=== PATIENT | male | born 1975 | race Caucasian/White ===

== ENCOUNTER 2022-01-01 17:51 | Outpatient (REF) | payer BC, SELFPAY ==
[2022-01-01 16:27] LABS: Anion Gap 8.6 mmol/L (3-11); BUN 19 mg/dL (7-18); CO2 28.4 mmol/L (21.0-32.0); CREATININE 0.9 mg/dL (0.70-1.30); Calcium 9.5 mg/dL (8.5-10.1); Calculated LDL 234 mg/dL (<100); Chloride 99 mmol/L (98-107); Cholesterol 306 mg/dL (<200); Glucose 105 mg/dL (74-106); HDL Cholesterol 54 mg/dL (40-60); Potassium 4.6 mmol/L (3.5-5.1); Sodium 136 mmol/L (136-145); Triglyceride 92 mg/dL (<150); Vitamin B12 746 pg/mL (193-986)
[2022-01-01 22:14] LABS: PSA, Screening 0.5 ng/mL (0.0-2.5)
== END 2022-01-01 17:52 | disposition home or self-care (01) ==
LOC: NCHCN 17:51
PROVIDERS: PCP Nurse Practitioner Family; Visit Provider Nurse Practitioner Family
DX: Z00.00 Encounter for general adult medical examination without abnormal findings (principal); R06.83 Snoring; K21.9 Gastro-esophageal reflux disease without esophagitis; E66.9 Obesity, unspecified; K42.9 Umbilical hernia without obstruction or gangrene; G47.62 Sleep related leg cramps; Z12.5 Encounter for screening for malignant neoplasm of prostate
CPT/HCPCS: 80048; 80061; 84153; 82607; 83735

== ENCOUNTER 2023-01-15 14:50 | Outpatient (REF) | payer BC, SELFPAY ==
[2023-01-15 16:12] LABS: BUN 20 mg/dL (7-18); Calcium 9.5 mg/dL (8.5-10.1); Calculated LDL 200 mg/dL (<100); Chloride 103 mmol/L (98-107); Cholesterol 267 mg/dL (<200); Glucose 109 mg/dL (74-106); HDL Cholesterol 50 mg/dL (40-60); Magnesium 2.2 mg/dL (1.8-2.4); Potassium 4.4 mmol/L (3.5-5.1); Sodium 141 mmol/L (136-145); Triglyceride 88 mg/dL (<150); Vitamin B12 577 pg/mL (193-986)
[2023-01-15 23:31] LABS: PSA, Screening 0.7 ng/mL (<=2.5)
[2023-01-18 11:45] LABS: Hepatitis C Ab w Rflx HCV PCR Negative (Negative)
[2023-01-18 12:02] LABS: HIV-1/2 Ag & Ab Screen Negative (Negative)
== END 2023-01-15 14:51 | disposition home or self-care (01) ==
LOC: NCHCN 14:50
PROVIDERS: PCP Nurse Practitioner Family; Visit Provider Nurse Practitioner Family
DX: Z00.00 Encounter for general adult medical examination without abnormal findings (principal); R03.0 Elevated blood-pressure reading, without diagnosis of hypertension; K62.5 Hemorrhage of anus and rectum; K21.9 Gastro-esophageal reflux disease without esophagitis; E78.5 Hyperlipidemia, unspecified; E66.3 Overweight; Z80.42 Family history of malignant neoplasm of prostate; Z12.5 Encounter for screening for malignant neoplasm of prostate; Z11.4 Encounter for screening for human immunodeficiency virus [HIV]; Z11.59 Encounter for screening for other viral diseases
CPT/HCPCS: 80048; 80061; 84153; 86803; 87389; 82607; 83735

== ENCOUNTER 2023-07-20 11:07 | Outpatient (REF) | payer BC, SELFPAY ==
[2023-07-20 16:17] LABS: ALT 86 U/L (16-63); AST 45 U/L (15-37); Albumin 4.4 g/dL (3.4-5.0); Alkaline Phosphatase 64 U/L (46-116); BUN 21 mg/dL (7-18); Bilirubin, Total 0.8 mg/dL (0.2-1.0); Calcium 9.9 mg/dL (8.5-10.1); Calculated LDL 138 mg/dL (<100); Chloride 105 mmol/L (98-107); Cholesterol 208 mg/dL (<200); Glucose 110 mg/dL (74-106); HDL Cholesterol 55 mg/dL (40-60); Potassium 4.8 mmol/L (3.5-5.1); Sodium 139 mmol/L (136-145); Total Protein 7.5 g/dL (6.4-8.2); Triglyceride 79 mg/dL (<150)
== END 2023-07-20 11:08 | disposition home or self-care (01) ==
LOC: NCHCN 11:07
PROVIDERS: PCP Nurse Practitioner Family; Visit Provider Nurse Practitioner Family
DX: Z00.00 Encounter for general adult medical examination without abnormal findings (principal); R03.0 Elevated blood-pressure reading, without diagnosis of hypertension; E66.3 Overweight
CPT/HCPCS: 80053; 80061

== ENCOUNTER 2023-10-11 16:41 | Outpatient (REF) | payer BC, SELFPAY ==
[2023-10-11 15:42] LABS: ALT 81 U/L (16-63); AST 43 U/L (15-37); Albumin 4.2 g/dL (3.4-5.0); Alkaline Phosphatase 68 U/L (46-116); Anion Gap 8.2 mmol/L (3-11); BUN 17 mg/dL (7-18); Bilirubin, Total 0.8 mg/dL (0.2-1.0); CO2 26.8 mmol/L (21.0-32.0); CREATININE 0.9 mg/dL (0.70-1.30); Calcium 9.5 mg/dL (8.5-10.1); Chloride 104 mmol/L (98-107); Estimated GFR 106.01 (mL/min/1.73m2); Glucose 129 mg/dL (74-106); Potassium 4.3 mmol/L (3.5-5.1); Sodium 139 mmol/L (136-145); Total Protein 7.4 g/dL (6.4-8.2); Vitamin B12 642 pg/mL (193-986)
--- OUTSIDE RECORDS SUMMARY | 2023-10-11 16:43 | XMS_ITS | Continuity of Care Document ---
Author Name Unknown Organization [facility] Address [address] [place] [phone] Care Team Providers Care Retail Stocker Name Role Phone NEAL HAWKINS APRN Primary Care Physician Encounter [facility] NBR [id number] Date(s): 09/30/23 - 09/30/[address] [id number] Discharge Disposition: Home or Self Care Attending Physician: NEAL HAWKINS APRN Admitting Physician: NEAL HAWKINS APRN Referring Physician: NEAL HAWKINS APRN Allergies, Adverse Reactions, Alerts No Known Medication Allergies Assessment and Plan Future Appointments Medications pantoprazole 40 mg oral delayed release tablet 40 mg = 1 tab, Oral, Daily, 1 Unknown, # 30 tab, 11 Refill(s), Pharmacy: [id number] Start Date: 07/09/22 Stop Date: 07/04/23 Status: Ordered Problem List Condition Confirmation Course Effective Dates Status Health St [facility] Informant Back pain Confirmed Active Leg cramps Confirmed Active Dry skin Confirmed Active GERD with esophagitis Confirmed Active GERD (gastroesophageal reflux disease) Confirmed Active Hyperlipemia Confirmed Active Colon cancer Confirmed Active Prostate cancer Confirmed Active Over weight Confirmed Active Preventative health care Confirmed Active Phimosis Confirmed Active Rectal bleeding Confirmed Active Umbilical hernia Confirmed Active Procedures Procedure Date Related Diagnosis Body Site Status Colonoscopy 03/26/22 Completed Upper GI (gastrointestinal) endoscopy 03/26/22 Completed Vasectomy Completed Results Radiology Reports * Exam Date Time Procedure Performing Provider Status 09/30/23 4:10 PM MRI Spine Lumbar w/o Contrast DomainU ser, Generated; Auth (Verified) Notes: (MRI Spine Lumbar w/o Contrast) Reason For Exam: LOW BACK PAIN MRI Spine Lumbar w/o Contrast EXAM DESCRIPTION: MRI Spine Lumbar w/o Contrast 09/30/2023 INDICATION: LOW BACK PAIN TECHNIQUE: Multiplanar MRI examination of the lumbar spine utilizing T1, fat-suppressed T2 and fast STIR technique. COMPARISON: None FINDINGS: Mild retrolisthesis at L4-5. Lumbar lordosis is otherwise satisfactory with no scoliosis. Loss of intervertebral disc stature and signal intensity at L5-S1 on sagittal T2 weighted images consistent with desiccation and degeneration L5-S1: Mild broad-based left paracentral disc extrusion superimposed on a mild diffuse disc bulge with mild bilateral facet hypertrophy. Mild-moderate left lateral recess stenosis with encroachment on the left S1 nerve root. No significant central stenosis with AP spinal canal diameter of 12 mm. Mild bilateral neural foraminal narrowing L4-5: Broad-based right paracentral disc extrusion superimposed on a mild diffuse disc bulge with mild bilateral facet hypertrophy. Right lateral recess stenosis with encroachment on the right L5 nerve root. No significant central stenosis with AP spinal canal diameter of 10 mm. No significant neural foraminal narrowing L3-4: No focal disc protrusion, significant spinal stenosis or neural foraminal narrowing. L2-3: No focal disc protrusion, significant spinal stenosis or neural foraminal narrowing. L1-2: No focal disc protrusion, significant spinal stenosis or neural foraminal narrowing. No significant stenosis in the visualized lower thoracic spine. The conus is normal in morphology and signal intensity and terminates at the L1 level. No suspicious regional marrow lesions with degenerative endplate changes at L5-S1. Small vertebral body hemangioma at the L1 level. No vertebral body compression deformity in the lumbar region Paraspinal soft tissues are unremarkable. IMPRESSION: Spondylotic changes in the lower lumbar region. Right lateral recess stenosis at L4-5 with left lateral recess stenosis at L5-S1. No significant central stenosis. Mild bilateral neural foraminal narrowing at L5-S1. Please see above discussion for individual level description. Normal conus. JOB #: [id number] Final Signed by: Nate Whitt MD Signed (Electronic Signature): 09/30/2023 4:39 pm Social History Social History Type Response Tobacco Never tobacco user T obacco Use:. Sex Patient Care team information Care Team Personnel Name: NEAL HAWKINS APRN Position: No Access Member Role: Primary Care Physician Address: Address: [address] [place] [phone]- Care Team Related Persons Name: ZA DALTON Address: Home [address], [place] [id number]
[2023-10-12 10:28] LABS: PSA, Screening 0.5 ng/mL (<=2.5)
== END 2023-10-11 16:42 | disposition home or self-care (01) ==
LOC: NCHCN 16:41
PROVIDERS: PCP Nurse Practitioner Family; Visit Provider Nurse Practitioner Family
DX: Z80.42 Family history of malignant neoplasm of prostate (principal); K21.9 Gastro-esophageal reflux disease without esophagitis
CPT/HCPCS: 80053; 84153; 82607; 83735

== ENCOUNTER 2024-04-19 20:46 | Outpatient (REF) | payer BC, SELFPAY ==
--- OUTSIDE RECORDS SUMMARY | 2024-04-19 20:47 | XMS_ITS | Continuity of Care Document ---
Author Organization [facility] Ambulatory [facility] Address [address] [place] [address] Care Team Providers Care Vice President Consulting Services Name Role Phone NEAL HAWKINS APRN Primary Care Physician Encounter [facility] NBR [id number] Date(s): 01/25/24 - 01/25/24 [facility] [address] [place] [address] [place] Encounter Diagnosis Lumbar disc herniation(Discharge Diagnosis) - 02/11/24 Stenosis of lateral recess of lumbar spine(Discharge Diagnosis) - 02/11/24 Lumbar radiculopathy(Discharge Diagnosis) - 02/11/24 Discharge Disposition: Home or Self Care Attending Physician: Jodie Gallagher DO Referring Physician: Janelle Cortes APRN-BRITNEY Allergies, Adverse Reactions, Alerts No Known Medication Allergies Assessment and Plan Extracted from: Title:[facility] Office Visit Note - Pain Management Author:Jodie Gallagher DO Date:01/25/24 Lumbar disc herniation??M51. 26 Ordered: Surgical Procedure Booking Request LT, 01/25/24 9:46:00 EDT, lumbar radiculopathy, Lumbar disc herniation Lumbar radiculopathy Stenosis of lateral recess of lumbar spine, Outpatient, L4-5 TLESI, Primary Procedure, 31, Special equipment needed (include C-Arm requests)?, Local, 31, Chanell... ?? Lumbar radiculopathy??M54.16 Ordered: Surgical Procedure Booking Request [facility], 01/25/24 9:46:00 EDT, lumbar radiculopathy, Lumbar disc herniation Lumbar radiculopathy Stenosis of lateral recess of lumbar spine, Outpatient, L4-5 TLESI, Primary Procedure, 31, Special equipment needed (include C-Arm requests)?, Local, 31, Chanell... ?? Stenosis of lateral recess of lumbar spine??M48.061 Ordered: Surgical Procedure Booking Request LTTL, 01/25/24 9:46:00 EDT, lumbar radiculopathy, Lumbar disc herniation Lumbar radiculopathy Stenosis of lateral recess of lumbar spine, Outpatient, L4-5 TLESI, Primary Procedure, 31, Special equipment needed (include C-Arm requests)?, Local, 31, Chanell... ? Terrie is here for evaluation of back pain with radiation to the right lower extremity.?? MRI of the lumbar spine??from 09/30/2023 was independently interpreted. ??There are degenerative disc changes noted at L4-5 and??L5-S1. ??There are endplate??changes at L5-S1.?? There is also a mild disc bulge/protrusion slightly more prominent to the left at L5-S1 with mild to moderate left lateral recess stenosis.?? He denies left sided symptoms.?? At L4-5, there is a right paracentral disc protrusion resulting in??moderate to severe right lateral recess stenosis and likely impingement of the L5 nerve root.?? The findings at L4-5 are likely contributing to the??radicular leg symptoms. He has been [facility] for [facility] and surgery was discussed. ??We reviewed the option to trial a lumbar epidural steroid injection.?? Risks and??potential benefits were reviewed. He would like to trial an injection before considering surgical options.?? Order placed. ?? He will follow up for lumbar CLAY. ? Future Appointments Medications amLODIPine 10 mg oral tablet 0 Refill(s) Start Date: 10/27/23 Status: Ordered atorvastatin 10 mg oral tablet 0 Refill(s) Start Date: 10/27/23 Status: Ordered omeprazole 40 mg oral delayed release capsule 0 Refill(s) Start Date: 10/27/23 Status: Ordered triamcinolone 0.1% topical cream 0 Refill(s) Start Date: 10/27/23 Status: Ordered Problem List Condition Confirmation Course Effective Dates Status H ealth Status Informant Back pain Confirmed Active Leg cramps Confirmed Active Degeneration of lumbar intervertebral disc Confirmed Active Dry skin Confirmed Active GERD with esophagitis Confirmed Active GERD (gastroesophageal reflux disease) Confirmed Active Hyperlipemia Confirmed Active Lumbar spondylosis Confirmed Active Colon cancer Confirmed Active Prostate cancer Confirmed Active Over weight Confirmed Active Preventative health care Confirmed Active Phimosis Confirmed Active Lumbar disc herniation Confirmed Active Rectal bleeding Confirmed Active Umbilical hernia Confirmed Active Procedures Procedure Date Related Diagnosis Body Site Status Colonoscopy 03/26/22 Completed Upper GI (gastrointestinal) endoscopy 03/26/22 Completed Vasectomy Completed Vital Signs Most recent to oldest [Reference Range]: 1 Temperature Temporal Artery [36-38 Deg C ] 36.6 Deg C (01/25/24 9:00 AM) Peripheral Pulse Rate [60-100 bpm] 81 bp m (01/25/24 9:00 AM) Respiratory Rate [12-24 br/min] 16 br/mi n (01/25/24 9:00 AM) Blood Pressure [90-140/60-90 mmHg] 142/9 2mmHg *HI* (01/25/24 9:00 AM) Mean Arterial Pressure, Cuff [65-140 mmH g] 109 mmHg (01/25/24 9:00 AM) Weight 100.8 kg (01/25/24 9:00 AM) Weight Measured (lbs) 222.226 lb (01/25/24 9:00 AM) Weight Dosing 100.800 kg (01/25/24 9:00 AM) [place] Body Weight Calculated 74.992 kg (01/25/24 9:00 AM) Height 180 cm (01/25/24 9:00 AM) Height/Length Measured (inches) 70.87 in ch (01/25/24 9:00 AM) BSA Measured 2.24 m2 (01/25/24 9:00 AM) Body Mass Index 31.11 kg/m2 (01/25/24 9:00 AM) Social History Social History Type Response Tobacco Never tobacco user T obacco Use:. Sex Physician Outpatient Note * Jodie Gallagher, DO: PERFORM, MODIFY Event Display: Office Clinic Note Physician Authored Date: [id number] TERRIE GRAF :1975 Age:48 years Sex:Male Visit Date:01/25/2024 Primary Care Physician: NEAL HAWKINS APRN Chief Complaint low back pain Additional Information Patient reports occasional numbness/tingling in right foot. Patient reports going to chiropractor since May 2023 and it has been helping, he states his chiropractor gave him stretches to try but they have not been helping much. History of Present Illness ?? Terrie is here for evaluation of back pain with intermittent radiation to the right leg.?? He has experienced intermittent flareups of pain over the years.?? He experienced a flareup in May. 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 He has been doing a??home exercise/stretching program from the chiropractor. ??He also started working with a personal protection specialist twice weekly.?? During his most recent flareup, he was started on gabapentin which was helpful for his pain, however, he noticed??brain fog??and recently discontinued the medication. ??Since disco ntinuing gabapentin, he has noticed increased back and leg??pain. ??The back pain is described as adull constant ache. ??He experiences intermittent shooting pain to the??right leg. ??The back pain radiates to the right buttock and can occasionally travel to the right groin and anterior thigh??butthe most significant pain is along the posterolateral calf with intermittent numbness and tingling??in the right foot.?? Pain level is 2/10 currently and can increase up to 8???9/10??depending on hisactivities.?? He can experience difficulty getting out of a car, and transitioning from sitting to standing.?? He also has difficulty with prolonged walking. He also tried 2 visits of massage therapy without relief. Review of Systems Constitutional:?No fevers/chills Respiratory:?No shortness of breath Cardiovascular:?No Chest pain Gastrointestinal:?No bowel dysfunction Genitourinary:?No bladder dysfunction Musculoskeletal:??Positive for back pain Neurological: No focal??weakness, +numbness/tingling right foot Physical Exam Vitals & Measurements T:??36.6?C ??(Temporal Artery)?? HR:??81??(Peripheral)?? RR:??16?? BP:??142/92?? SpO2:??95%?? HT:??180??cm?? WT:??100.8??kg?? BMI:??31.11?? BSA:??2.24?? General: NAD HEENT: Facial movements symmetric Resp: Breathing comfortably, unlabored respirations Lumbar ROM: Fairly normal range of motion of the lumbar spine in flexion, mildly limited extension. mild tenderness to palpation??right lumbar??paraspinal muscles Neuro: Motor:Strength is 5 out of 5 lower extremities bilaterally HF, KE, AD, EHL, PF Sensation:Intact to light touch in the lower extremities bilaterally Reflexes: 2+ bilateral patellar, achilles.?? Provocative tests: Straight leg raise does not reproduce leg pain Hips: No groin pain with internal or external rotation SI joints: Bertha's finger test negative Gait: normal, able to toe and heel walk Assessment/Plan Lumbar disc herniation??M51.26 Ordered: Surgical Procedure Booking Request LTTL, 01/25/24 9:46:00 EDT, lumbar radiculopathy, Lumbar disc herniation Lumbar radiculopathy Stenosis of lateral recess of lumbar spine, Outpatient, L4-5 TLESI, Primary Procedure, 31, Special equipment needed (include C-Arm requests)?, Local, 31, Chanell... ?? Lumbar radiculopathy??M54.16 Ordered: Surgical Procedure Booking Request LTTL, 01/25/24 9:46:00 EDT, lumbar radiculopathy, Lumbar disc herniation Lumbar radiculopathy Stenosis of lateral recess of lumbar spine, Outpatient, L4-5 TLESI, Primary Procedure, 31, Special equipment needed (include C-Arm requests)?, Local, 31, Chanell... ?? Stenosis of lateral recess of lumbar spine??M48.061 Ordered: Surgical Procedure Booking Request LTTL, 01/25/24 9:46:00 EDT, lumbar radiculopathy, Lumbar disc herniation Lumbar radiculopathy Stenosis of lateral recess of lumbar spine, Outpatient, L4-5 TLESI, Primary Procedure, 31, Special equipment needed (include C-Arm requests)?, Local, 31, Chanell... ? Terrie is here for evaluation of back pain with radiation to the right lower extremity.?? MRI of the lumbar spine??from 09/30/2023 was independently interpreted. ??There are degenerative disc changes noted at L4-5 and??L5-S1. ??There are endplate??changes at L5-S1.?? There is also a mild disc bulge /protrusion slightly more prominent to the left at L5-S1 with mild to moderate left lateral recess stenosis.?? He denies left sided symptoms.?? At L4-5, there is a right paracentral disc protrusion resulting in??moderate to severe right lateral recess stenosis and likely impingement of the L5 nerveroot.?? The findings at L4-5 are likely contributing to the??radicular leg symptoms. He has been seen for initial evaluation in the [facility] and surgery was discussed. ??We reviewed the option totrial a lumbar epidural steroid injection.?? Risks and??potential benefits were reviewed. He would like to trial an injection before considering surgical options.?? Order placed. ?? He will follow up for lumbar CLAY. ?? Images MRI lumbar spine from 09/30/23 independently interpreted and agree with radiology report ? Greater than 45??minutes??spent in this encounter including [id number] time as well as additional time spent on chart review,??imaging review, documentation, orders/coordination of care. Problem List/Past Medical History Ongoing Back pain Colon cancer Degeneration of lumbar intervertebral disc Dry skin GERD (gastroesophageal reflux disease) GERD with esophagitis Hyperlipemia Leg cramps Lumbar disc herniation Lumbar spondylosis Over weight Phimosis Preventative health care Prostate cancer Rectal bleeding Umbilical hernia Historical No qualifying data Procedure/Surgical History ???Colonoscopy (03/27/2022)???Upper GI (gastrointestinal) endoscopy (03/27/2022)???Vasectomy Medications amLODIPine 10 mg oral tablet atorvastatin 10 mg oral tablet omeprazole 40 mg oral delayed release capsule triamcinolone 0.1% topical cream Allergies No Known Medication Allergies Social History Alcohol Current, Liquor, Daily Electronic Cigarette/Vaping Electronic Cigarette Use: Never. Tobacco Never tobacco user Tobacco Use:. Family History Cancer: Father. Stroke: Father. Mother: History is unknown Brother: History is unknown Sister: History is unknown Electronically Signed on 01/25/24 10:04 AM Jodie Gallagher DO Patient Care team information Care Team Personnel Name: NEAL HAWKINS APRN Position: No Access Member Role: Primary Care Physician Address: Address: [address] [place] [id number]- Care Team Related Persons Name: ZA DALTON Address: [address] [id number]
--- OUTSIDE RECORDS SUMMARY | 2024-04-19 20:47 | XMS_ITS | Continuity of Care Document ---
Author Organization [facility] Ambulatory Clinics Address [address] [place] [address] Care Team Providers Care Tool Room Machinist Name Role Phone NEAL HAWKINS APRN Primary Care Physician Encounter [facility] NBR [id number] Date(s): 10/28/23 - 10/28/23 [facility] Ambulatory Clinics [address] [place], [place] [address] Encounter Diagnosis Back pain(Discharge Diagnosis) - 10/28/23 Degeneration of lumbar intervertebral disc(Discharge Diagnosis) - 10/28/23 Lumbar spondylosis(Discharge Diagnosis) - 10/28/23 Lumbar disc herniation(Discharge Diagnosis) - 10/28/23 Discharge Disposition: Home or Self Care Attending Physician: IRWIN Dickens Referring Physician: NEAL HAWKINS APRN Allergies, Adverse Reactions, Alerts No Known Medication Allergies Assessment and Plan Extracted from: Title:Office Visit Note Author:ZHANG Dickens Date:10/28/23 1.??Back pain??M54.9 Ordered: XR Spine Lumbosacral 4+ Views, 10/28/23 14:26:00 EST, Routine, Reason: low back pain, AP/Lat and FLEX/EXT, Transport Mode: Ambulatory, Back pain, ABN Status: Not Required ?? 2.??Degeneration of lumbar intervertebral disc??M51.36 ?? 3.??Lumbar spondylosis??M47.816 ?? 4.??Lumbar disc herniation??M51.26 ?? The patient has been struggling with years of intermittent flares??of back pain and sciatica affecting the right lower extremity.?? This tends to happen 2 or 3 times a year and will resolve.?? In May he blew out his back and this resulted in significant low back pain as well as right leg pain.?? Fortunately, his symptoms have just about resolved??with??medications and chiropractic treatments. ??He does find the gabapentin??seems to be most helpful??with relieving this pain.?? He is concerned because he does not want to take this chronically but he is afraid if he stops taking the medication the pain will return. ??He is also concerned that maybe the gabapentin is just numbing his pain.?It was??explained the patient that he is in a difficult situation as he is not in any current pain??even though he recently was in quite severe pain.?? He suspects that the pain will return at some point as it has previously.?? Is very likely that the disc herniation at L4-5 on the right was the cause of his right leg symptoms. ??We discussed that surgical correction for that problem will be in the form of microlumbar discectomy however again it would be difficult to recommend surgical correction for that problem given that he is not experiencing any symptoms.?? If he were to develop increased pain in the right leg we could consider surgery as well as a possible lumbar epidural steroid injection.?? For his??low back pain, it was explained that low back pain can be more difficult to diagnose and localize. ??He does have??degeneration??and endplate changes that are quite pronounced at the L5-S1 level so it is possible that this is contribute to his low back pain.?? This may the patient that if he were to have surgery for the herniated disc at L4-5, that would likely not resolve his low back pain.?? The only surgery to correct low back pain and the degenerative changes at L5-S1 to be in the form of a posterior lumbar interbody fusion which is a much larger surgery.?? The patient had multiple questions about why his spine at times will rotate or leaning 1 way more than the other.?? He did show me some AP??images of the lumbar spine x- ray that he had completed with his chiropractor and there does appear to be a very mild??scoliosis??in the??upper lumbar and lower thoracic spine but this very well could be positional.?He was reassured that there is no evidence of a spinal deformity that would require surgical correction and it is very possible that due to his pain the myofascial??tissues are contributing to this??problem.?? We discussed that it would be reasonable for the patient to establish with the [facility]??but he states that he ended up canceling an appointment to see them because it was not until January. ??However, if his pain does return??or continue to bother he may benefit from an injection.?? We discussed that we would likely recommend trial of injections especially for the low back pain and problem at L5-S1 prior to proceeding with surgical correction for his problem.?I also recommended that we obtain flexion-extension lumbar spine x-rays to ensure that there is no abnormal movement of the lumbar spine and he is in agreement.?? He is asking if he should come off of his gabapentin and??I recommended that it may be worthwhile trialing coming off of this but he should wean off slowly.?? He is only taking 3 to milligrams at night so I recommended that he??take this medication every other night for the next few days and then he can stop if he would like to.?? We can follow-up with a telemedicine visit in 2 weeks to see??how he is feeling once he stopped the gabapentin. ??If his pain does return, I again would recommend referral to the pain clinic for consideration of injections. Plan: AP and lateral flexion-extension lumbar spine x-rays. Telemedicine??follow-up visit in 2 weeks. ? Future Appointments Medications amLODIPine 10 mg oral tablet 0 Refill(s) Start Date: 10/27/23 Status: Ordered atorvastatin 10 mg oral tablet 0 Refill(s) Start Date: 10/27/23 Status: Ordered gabapentin 300 mg oral capsule 0 Refill(s) Start Date: 10/27/23 Status: [...] Temperature Temporal Artery [36-38 Deg C ] 35.7 Deg C *LOW* (10/28/23 12:55 PM) Peripheral Pulse Rate [60-100 bpm] 91 bp m (10/28/23 12:55 PM) Blood Pressure [90-140/60-90 mmHg] 140/8 0mmHg (10/28/23 12:55 PM) Mean Arterial Pressure, Cuff [70-110 mmH g] 100 mmHg (10/28/23 12:55 PM) Weight 100.6 kg (10/28/23 12:55 PM) Weight Measured (lbs) 221.785 lb (10/28/23 12:55 PM) Weight Dosing 100.600 kg (10/28/23 12:55 PM) Social History Social History Type Response Tobacco Never tobacco user T obacco Use:. Sex Physician Outpatient Note * IRWIN Dickens: PERFORM Event Display: Office Clinic Note Physician Authored Date: [id number] TERRIE GRAF :1975 Age:48 years Sex:Male Visit Date:10/28/2023 Primary Care Physician: NEAL HAWKINS APRN Chief Complaint Lower back Additional Information Numbness or tingling no the gabapentin is helping. MRI at [facility]. Pain is worse when bending, lifting. History of Present Illness The patient presents for evaluation of his low back pain.?? He states that for??many years he will blow his back out 2-3 times??will have significant low back pain that eventually results and sciatica affecting the right lower extremity. ??He states that his most recent episode was in May when he blew his back out.?? He states that he had pain??in the middle down low in the low back??that??eventually radiated down the right lateral??leg??to the calf.?? The pain in his leg was most significant at the calf.?? He states in the past he had sciatica in the right leg that was more posterior and extended into the ball of his foot. ??He did not have any pain in his foot with this most recent episode though he did have some intermittent numbness and tingling.?? He denies any current weakness ofhis lower extremities but does recall that during 1??visit with his provider he was not able to walk on his toes when he was having the more significant pain.?? The patient saw??a chiropractor and??was also prescribed 2 rounds of oral steroids and then gabapentin??for his pain.?? He states that after he started the gabapentin his sciatica as well as his back pain just about resolved.?? However, this did cause brain fog so he had to decrease from taking this twice a day to once a day but it still seems to be helping manage the pain.?? He does have a tightness and stiffness in his low back but again no leg pain at this point.?? He finds that when he wakes up in the morning he will have increased pain and??often feels that his??spine is??curved or leaning 1 way or the other but this will resolve??but again happen intermittently in the morning.?? He also takes Advil and Tylenol as needed.??The patient??states that he is very limited in his activity because he is afraid that he is going to blow his back out again so he is looking for more permanent solution for his back problem. Review of Systems Relevant ROS discussed in HPI Physical Exam Vitals & Measurements T:??35.7?C ??(Temporal Artery)?? HR:??91??(Peripheral)?? BP:??140/80?? SpO2:??97%?? WT:??100.6??kg?? GENERAL:?General Appearance:?pleasant, age appropriate in no apparent distress.?? MUSCULOSKELETAL:?Musculoskeletal:??No lumbar spine,??lumbar paraspinal muscle,??bilateral SI joint or bilateral greater trochanteric bursa tenderness.?There is no deformity of the spine noted on examination. NEUROLOGICAL:?Neurological:?? Negative straight leg bilaterally??from a seated position. ?Motor:?Strength 5/5 with bilateral hip flexion, knee flexion and extension, ankle dorsiflexion and plantar flexion.?Reflexes:?1+ and symmetric in biceps, triceps, brachioradialis bilaterally.?? 3+ bilateral knee jerks. ??2+ right ankle jerk, 1+ left ankle jerk. ? Tone: normal? Gait:?normal.? Assessment/Plan 1.??Back pain??M54.9 Ordered: XR Spine Lumbosacral 4+ Views, 10/28/23 14:26:00 EST, Routine, Reason: low back pain, AP/Lat and FLEX/EXT, Transport Mode: Ambulatory, Back pain, ABN Status: Not Required ?? 2.??Degeneration of lumbar intervertebral disc??M51.36 ?? 3.??Lumbar spondylosis??M47.816 ?? 4.??Lumbar disc herniation??M51.26 ?? The patient has been struggling with years of intermittent flares??of back pain and sciatica affecting the right lower extremity.?? This tends to happen 2 or 3 times a year and will resolve.?? In May he blew out his back and this resulted in significant low back pain as well as right leg pain.??Fortunately, his symptoms have just about resolved??with??medications and chiropractic treatments. ??He does find the gabapentin??seems to be most helpful??with relieving this pain.?? He is concernedbecause he does not want to take this chronically but he is afraid if he stops taking the medication the pain will return. ??He is also concerned that maybe the gabapentin is just numbing his pain.?It was??explained the patient that he is in a difficult situation as he is not in any current pain??even though he recently was in quite severe pain.?? He suspects that the pain will return at some point as it has previously.?? Is very likely that the disc herniation at L4-5 on the right was the cause of his right leg symptoms. ??We discussed that surgical correction for that problem will be in the form of microlumbar discectomy however again it would be difficult to recommend surgical correction for that problem given that he is not experiencing any symptoms.?? If he were to develop increased pain in the right leg we could consider surgery as well as a possible lumbar epidural steroid inje ction.?? For his??low back pain, it was explained that low back pain can be more difficult to diagnose and localize. ??He does have??degeneration??and endplate changes that are quite pronounced at the L5-S1 level so it is possible that this is contribute to his low back pain.?? This may the patientthat if he were to have surgery for the herniated disc at L4-5, that would likely not resolve his low back pain.?? The only surgery to correct low back pain and the degenerative changes at L5-S1 to be in the form of a posterior lumbar interbody fusion which is a much larger surgery.?? The patient had multiple questions about why his spine at times will rotate or leaning 1 way more than the other.?? He did show me some AP??images of the lumbar spine x-ray that he had completed with his chiropractor and there does appear to be a very mild??scoliosis??in the??upper lumbar and lower thoracic spine but this very well could be positional.?He was reassured that there is no evidence of a spinal deformity that would require surgical correction and it is very possible that due to his pain the юлия fascial??tissues are contributing to this??problem.?? We discussed that it would be reasonable for the patient to establish with the [facility]??but he states that he ended up canceling an appointment to see them because it was not until January. ??However, if his pain does return??or continue to bother he may benefit from an injection.?? We discussed that we would likely recommend trial ofinjections especially for the low back pain and problem at L5-S1 prior to proceeding with surgical correction for his problem.?I also recommended that we obtain flexion-extension lumbar spine x-rays to ensure that there is no abnormal movement of the lumbar spine and he is in agreement.?? He is asking if he should come off of his gabapentin and??I recommended that it may be worthwhile trialingcoming off of this but he should wean off slowly.?? He is only taking 3 to milligrams at night so Irecommended that he??take this medication every other night for the next few days and then he can stop if he would like to.?? We can follow-up with a telemedicine visit in 2 weeks to see??how he is feeling once he stopped the gabapentin. ??If his pain does return, I again would recommend referral to the pain clinic for consideration of injections. Plan: AP and lateral flexion-extension lumbar spine x-rays. Telemedicine??follow-up visit in 2 weeks. Problem List/Past Medical History Ongoing Back pain [...] oral tablet atorvastatin 10 mg oral tablet gabapentin 300 mg oral capsule omeprazole 40 mg oral delayed release capsule triamcinolone 0.1% topical cream Allergies No Known Medication Allergies Social History Alcohol Current, Liquor, Daily Electronic Cigarette/Vaping Electronic Cigarette Use: Never. Tobacco Never tobacco user Tobacco Use:. Family History Cancer: Father. Stroke: Father. Mother: History is unknown Brother: History is unknown Sister: History is unknown Diagnostic Results Diagnostic Study Interpretation: MRI lumbar spine reviewed with the patient. There are degenerative disc changes at the L4-5 and L5-S1 level but most pronounced at L5-S1 where there is intervertebral disc space narrowing that is quite pronounced as well as Modic endplate changes.?? At L5-S1 there is also mild diffuse disc bulge with bilateral facet hypertrophy causing??mild to moderate??left lateral recess stenosis and neuroforaminal narrowing.?? At L4-5 there are mild bilateral facet changes with a right paracentral disc protrusion causing moderate to severe right lateral recess stenosis. Electronically Signed on 10/28/23 02:54 PM Janelle Cortes APRN-CHAR BELT OPERATOR Patient Care team information Care Team Personnel Name: NAEL HAWKINS APRN Position: No Access Member Role: Primary Care Physician Address: Address: [address] [place] [id number]- Care Team Related Persons Name: ZA DALTON Address: [address] [phone]
--- OUTSIDE RECORDS SUMMARY | 2024-04-19 20:47 | XMS_ITS | Continuity of Care Document ---
Author Organization [facility] Address [address] [place] [id number] Care Team Providers Care Supervisor Of Officials Name Role Phone NEAL HAWKINS APRN Primary Care Physician Encounter [facility] NBR [id number] Date(s): 10/28/23 - 10/28/[address] [address]- Encounter Diagnosis Dorsalgia, unspecified(Final) - Discharge Disposition: Home or Self Care Attending Physician: IRWIN Dickens Admitting Physician: IRWIN Dickens Referring Physician: IRWIN Dickens Allergies, Adverse Reactions, Alerts No Known Medication Allergies Assessment and Plan Future Appointments Medications amLODIPine 10 mg oral [...] Condition Confirmation Course Effective Dates Status H ealt Status Informant Back pain Confirmed Active Leg [...] Exam Date Time Procedure Performing Provider Status 10/28/23 2:43 PM XR Spine Lumbosacral 4+ Views Renay Julian; Rachel (Verified) Notes: (XR Spine Lumbosacral 4+ Views) Reason For Exam: low back pain XR Spine Lumbosacral 4+ Views EXAM DESCRIPTION: XR Spine Lumbosacral 4+ Views 10/28/2023 INDICATION: LOW BACK PAIN TECHNIQUE: AP and views of the lumbar spine including lateral views with voluntary flexion/extension, four views COMPARISON: None IMPRESSION: No acute fracture or subluxation. Mild levoscoliosis centered in the mid-lumbar region Intervertebral disc space narrowing and endplate osteophyte formation at L5-S1 consistent with degenerative disc disease with mild intervertebral disc space narrowing at L4-5. Intervertebral disc space narrowing noted in the visualized lower thoracic spine as well. Views with voluntary flexion/extension demonstrate no evidence of significant instability. SI joints appear symmetric. JOB #: [id number] Final Signed by: Nate Whitt MD Signed (Electronic Signature): 10/28/2023 3:03 pm Social History Social History Type Response Tobacco Never tobacco user T obacco Use:. Sex Patient Care team information Care Team Personnel Name: NEAL HAWKINS APRN Position: No Access Member Role: Primary Care Physician Address: Address: [address] [place] [address]- Care Team Related Persons Name: ZA DALTON Address: Home [address] [place], [place] [id number]
--- OUTSIDE RECORDS SUMMARY | 2024-04-19 20:48 | XMS_ITS | Continuity of Care Document ---
Author Organization [facility] Ambulatory Clinics Address [address] [place] [address] Care Team Providers Care Transplant Worker Name Role Phone NEAL HAWKINS APRN Primary Care Physician [phone] Encounter [facility] NBR [id number] Date(s): 02/03/24 - 02/03/24 [facility] Ambulatory Clinics [address] [place] [address] us Encounter Diagnosis Degeneration of lumbar intervertebral disc(Discharge Diagnosis) - 02/03/24 Lumbar disc herniation(Discharge Diagnosis) - 02/03/24 Back pain(Discharge Diagnosis) - 02/03/24 Lumbar radiculopathy(Discharge Diagnosis) - 02/03/24 Lumbar spondylosis(Discharge Diagnosis) - 02/03/24 Discharge Disposition: Home or Self Care Attending Physician: Thanh Vasquez DO ([place]) Allergies, Adverse Reactions, Alerts No Known Medication Allergies Assessment and Plan Extracted from: Title:Neurosurgery office Visit Note Author:Thanh Vasquez DO ([place]) Date:02/03/24 1.??Degeneration of lumbar i ntervertebral disc??M51.36 ??48-year-old male with??right L5 radiculopathy??secondary to??right paracentral L4-5 disc herniation.?? He was referred??to pain management for LESI but??prefers to??have treatment with more durable??effect.?I recommended a right L4-5??microdiscectomy.?? I discussed??the surgery,??surgical risks, and expected postoperative course.?? Patient would like to proceed.?? Medical clearance requested. 2.??Lumbar disc herniation??M51.26 3.??Back pain??M54.41 Future Appointments Medications amLODIPine 10 mg oral [...] Effective Dates Status H ealth Status Informant Leg cramps Confirmed Active Degeneration of lumbar intervertebral disc Confirmed Active Dry skin Confirmed Active GERD with esophagitis Confirmed Active GERD (gastroesophageal reflux disease) Confirmed Active Hyperlipemia Confirmed Active Back pain Confirmed Active Lumbar spondylosis Confirmed Active Colon [...] Temperature Temporal Artery [36-38 Deg C ] 36.2 Deg C (02/03/24 9:21 AM) Peripheral Pulse Rate [60-100 bpm] 75 bp m (02/03/24 9:21 AM) Respiratory Rate [12-24 br/min] 16 br/mi n (02/03/24 9:21 AM) Blood Pressure [90-140/60-90 mmHg] 150/9 6mmHg *HI* (02/03/24 9:21 AM) Mean Arterial Pressure, Cuff [65-140 mmH g] 114 mmHg (02/03/24 9:21 AM) Social History Social History Type Response Tobacco Never tobacco user T obacco Use:. 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 The latest episode??began last May and??did not subside for 3months.?? The pain??radiated down the right??lateral lower extremity??in the L5 distribution.?? He??took Advil, Tylenol,??gabapentin and??underwent??several sessions of rn medicare. ??The gabapentin was effective but??clouded his cognition??to the point that he??took??the wrong??road to get to work, where he had been commuting for the past 15 years.?? He has seen since weaned off of this medication??without a change in his pain level.?? He denies bowel or bladder dysfunction. Review of Systems As per HPI Physical Exam Vitals & Measurements T:??36.2?C ??(Temporal Artery)?? HR:??75??(Peripheral)?? RR:??16?? BP:??150/96?? SpO2:??98%?? GENERAL:?General Appearance:?pleasant, age appropriate in no apparent [...] ankle jerk. ? Tone: normal? Gait:?normal.? Assessment/Plan 1.??Degeneration of lumbar intervertebral disc??M51.36 ??48-year-old male with??right L5 radiculopathy??secondary to??right paracentral L4-5 disc herniation.?? He was referred??to pain management for LESI but??prefers to??have treatment with more durable??effect.?I recommended a right L4-5??microdiscectomy.?? I discussed??the surgery,??surgical risks, and expected postoperative course.?? Patient would like to proceed.?? Medical clearance requested. 2.??Lumbar disc herniation??M51.26 3.??Back pain??M54.41 Problem List/Past Medical History Ongoing Back pain [...] Diagnostic Results Diagnostic Study Interpretation: MRI lumbar spine??09/30/23: There are degenerative disc changes at the L4-5 and L5-S1 level but most pronounced at L5-S1 where there is intervertebral disc space narrowing that is quite pronounced aswell as Modic endplate changes.?? At L5-S1 there is also mild diffuse disc bulge with bilateral facet hypertrophy causing??mild to moderate??left lateral recess stenosis and neuroforaminal narrowing.?? At L4-5 there are mild bilateral facet changes with a right paracentral disc protrusion causing moderate to severe right lateral recess stenosis. Attending Attestation Spent??45 minutes with patient in obtaining appropriate history and exam, counseling the patient, ordering surgery.?Time was not spent in performing separately reimbursable service. Electronically Signed on 02/03/24 09:53 AM Thanh Vasquez DO ([place]) Patient Care team information Care Team Personnel Name: NEAL HAWKINS APRN Position: No Access Member Role: Primary Care Physician Address: Address: [address] [place] [phone]- Care Team Related Persons Name: ZA DALTON Address: [address] [phone]
--- OUTSIDE RECORDS SUMMARY | 2024-04-19 20:48 | XMS_ITS | Encounter Summary ---
Author Organization [facility] Address [facility] [place] [address] Care Team Providers Care Heel Cover Softener Name Role Phone None Primary Care Provider Unavailabl e Encounter Details Date Type Department Care Team (Late st Contact Info) Description 05/13/2007 Orders Only [place] [address] Rogers Mane MD [facility] DR ORAL & [place] [address] Social History Tobacco Use Types Packs/Day Years Used Date Smoking Tobacco: Never Assessed Sex and Gender Information Value Date Recorded Sex Assigned at Not on file Gender Identity Not on file Sexual Orientation Not on file documented as of this encounter Plan of Treatment Not on file documented as of this encounter Procedures Procedure Name Priority Date/Time Associated Diagnosis Comments SURGICAL PATHOLOGY REPORT Routine 05/13/2007 8:24 PM EDT documented in this encounter Results * Surgical Pathology Report (05/13/2007 8:24 PM EDT) Surgical Pathology Report [id number] ? Location: The signing pathologist has (i) examined the relevant preparation(s) for the specimen(s) and (ii) rendered or confirmed the diagnosis(es). . ?Pathology Surgical Pathology Final Report Clinical Information Specimen Submitted: A - Left buccal mucosa; punch 4 mm on buccal mucosa B - Right gingiva; punch 3 mm on right mandibular gingiva Clinical History: White spots. Quit chewing tobacco 2 yrs ago - (__ILLEGIBLE__) . Clinical Diagnosis: R/O dysplasia for both. Gross Description A - Labeled/Fixativ e: Labeled with the patient's name and A, formalin. Qty/Size/Weight : ?Single, 0.3 cm. Tissue Description: ?? Firm, pink-agosto tissue. Sections/Proces sing: ??(T1) B - Labeled/Fixativ e: Labeled with the patient's name and B, formalin. Qty/Size/Weight : ?Single, 0.2 cm. Tissue Description: ?? Soft, agosto-brown tissue. Sections/Proces sing: ??(T1) ??aje/RR Microscopic Description Slides reviewed, microscopic description not recorded. Diagnosis A - Left buccal mucosa; punch 4-mm biopsy: ?Benign squamous mucosa with hyperkeratosis. B - Right mandibular gingiva; punch 3-mm biopsy: ?Benign squamous mucosa with hyperkeratosis. CR-0 05/17/07 VAM 05/17/07 Verified by: ? Salvador Aquino MD ?Pathologist ?(Electronic Signature) The attending pathologist whose signature appears on this report has reviewed all diagnostic slides and has edited the gross and/or microscopic portion of the report in rendering the final pathologic diagnosis. ODALIS MAYDAVIDSON 05/13/2007 8:24 PM EDT Rogers Mane MD PATHOLOGY/CYTOLOGY O LYN ODALIS PORTER documented in this encounter Visit Diagnoses Not on filedocumented in this encounter Care Teams Heel Cover Softener Relationship Specialty Start Date End Date None None PCP - General 08/26/10 documented as of this encounter
--- OUTSIDE RECORDS SUMMARY | 2024-04-19 20:48 | XMS_ITS | Continuity of Care Document ---
Author Organization [place] - [facility], [facility] Address [address] [place] [address] Assessment No assessment recorded. Plan of Treatment Reminders Order Date Submit Date Provider Last Modified By Organization Details Last Modified Time Details Appointments Nurse Visit 30 2023 01:30P M Idabel Nursing Staff Not available Not available Not available Nurse Visit 30 2023 08:00A M Idabel Nursing Staff Not available Not available Not available Follow Up 2023 09:00A M NEAL HAWKINS Not available Not available Not available Lab CBC w/ diff - 1Y, 1P 2023 024 [facility] (Registration ), [address] [place] [address] [place], [address], 04/19/2024 14:20:34 CMP, serum or plasma - 1Y, 1P 2023 024 [facility] (Registration ), [address] [place] [address] [place], [address], 04/19/2024 14:20:35 Referral None recorded. Procedures None recorded. Surgeries None recorded. Imaging electroca rdiogram [id number] [place] [address], [address] [place] [address], [address], 04/19/2024 15:50:58 Medication Orders None recorded. Patient TargetsNo targets recorded. Patient InstructionsNo instructions recorded. Reason for Referral Pain Management Referral for Chronic low back pain MRI ordered, waiting on prior auth Referring Physician: Neal Hawkins, Family Medicine, Encounter Date: 09/07/2023 Packaging Line Attendant Referral for Gang lion cyst of left foot Referring Physician: Neal Hawkins Family Medicine, Encounter Date: 09/07/2023 Neurological Surgeon Referra l for Chronic low back pain Referring Physician: Neal Hawkins Family Medicine, Encounter Date: 10/11/2023 Results Created Date Observation Date Name Description Value Unit Range Abnormal Flag LastModifiedBy Organization Detail LastModifiedTime 04/18/20 24 04/19/2024 elect alaina bowling am No observ ation record ed. [address], [address], 04/19/2024 16:49:35 Result Notes None recorded. Problems Name Status Onset Date Resolution Date Notes Provider Name and Address Organization Details Recorded Time Family history of malignant neoplasm of prostate Active 2013 Problem Code: Z80.42; Problem Code Type: ICD-10; SAM[address], [facility] [address] , [facility] 3 06:58:25 Hyperlipidemia Active 2013 Problem Code: E78.5; Problem Code Type: ICD-10; SAMIR [address], [facility] [address] , [facility] 3 06:58:25 Gastroesophageal reflux disease without esophagitis Active 2021 Problem Code: K21.9; Problem Code Type: ICD-10; [address], [place], [address] , [facility] 3 06:58:25 Snoring Active 2021 Problem Code: R06.83; Problem Code Type: ICD-10; SAM[address], [facility] [address] , [facility] 3 06:58:25 Obesity Active 2021 Problem Code: E66.9; Problem Code Type: ICD-10; SAMIR MCG[address] Dr, [address] 3 06:58:25 Umbilical hernia Active 2021 Problem Code: K42.9; Problem Code Type: ICD-10; SAMIR [address]CG[address] Dr, [address] 3 06:58:25 Cramp in lower limb associated with sleep Active 2021 Problem Code: G47.62; Problem Code Type: ICD-10; SAMIR MCG[address] Dr, [address] 3 06:58:25 Asteatosis cutis Completed 202106/30/2023 Problem Code: L85.3; Problem Code Type: ICD-10; Not Available [facility] 3 05:46:26 Adult health examination Active 2021 Problem Code: Z00.00; Problem Code Type: ICD-10; SAMIR [address], [facility] [address] [place] [address] 3 06:58:25 Hemorrhage of rectum and anus Active 2021 Problem Code: K62.5; Problem Code Type: ICD-10; SAMIR [address], [facility] [address] [place] [address] 3 06:58:25 History of polyp of colon Active 2022 Problem Code: Z86.010; Problem Code Type: ICD-10; SAMIR [address], [facility] [id number] [place] [address] 3 06:58:25 Phimosis Completed 202101/15/2023 Problem Code: N47.1; Problem Code Type: ICD-10; Not Available [facility] 3 05:46:27 Screening for malignant neoplasm of colon Completed 202101/15/2023 Problem Code: Z12.11; Problem Code Type: ICD-10; Not Available [facility] 3 05:46:27 Liver function tests outside reference range Active [address], [facility] [address] , [facility] 3 06:58:42 Essential hypertension Active [address], [facility] [address] [place] [address] 4 15:44:16 Chronic low back pain Active [address], [facility] [address] , [facility] 4 15:44:16 Diarrhea Active [address], [facility] [address] [place] [address] 4 15:44:16 Ganglion cyst of left foot Active [address], [facility] [address] , [facility] 4 15:44:16 Notes:*Problem Name: Family History Prostate Ca *ICD-10 Codes: *Problem Status: inactive *Comments: *Note Date: 05/07/2014 Problem Notes None recorded. Procedures Surgical History None recorded. Imaging Results Imaging Date Name Status LastModified by Organization Details LastModified Time 04/19/2024 electrocardiogram completed [email or web address], [address], 04/19/2024 16:49:35 Procedure Notes None recorded. Medical Equipment None Reported. Allergies No known drug allergies Medications Name Sig Start Date Stop Date Status Note LastModified by Organization Details LastModified Time cyclobenz aprine 10 mg tablet TAKE 1 TABLET BY MOUTH EVERY 12 HOURS NEEDED FOR PAIN OR MUSCLE SPASMS 10/11 completed Not Available Not Available Not Available atorvasta tin 10 mg tablet take 1 tablet by mouth once daily active Not Available Not Available No t Available amlodipin e 5 mg tablet take 1 tablet by mouth once daily 03/23 completed Not Available Not Available Not Available omeprazol e 40 mg capsule,d elayed release take 1 capsule by mouth once daily active Not Available Not Available No t Available triamcino lone acetonide 0.1 % topical cream apply A thin layer to affected area TWICE A DAY active Not Available Not Available No t Available Medrol 4 mg tablet Dose mathieu: 6 day taper. Take as directed 01/01 completed Not Available Not Available Not Available amlodipin e 10 mg tablet take 1 tablet by mouth once daily active Not Available Not Available No t Available pantopraz ole 40 mg tablet,de layed release take 1 tablet by mouth daily 10/11 completed Not Available Not Available Not Available gabapenti n 300 mg capsule take 1 capsule by mouth at bedtime 01/24 completed stopped due to Pain [facility] Not Available Not Available Not Available omeprazol e 20 mg capsule,d elayed release Take 1 capsule by mouth once a day 04/19 completed Not Available Not Available Not Available codeine 10 mg-guaife nesin 100 mg/5 mL oral liquid take 5 millilit ers (1 TEASPOON FUL) by mouth twice a day for 7 day... (REFER TO PRESCRIP TION NOTES). 10/11 completed Not Available Not Available Not Available methylpre dnisolone 4 mg tablets in a dose pack use as directed FOLLOW DIRECTIO NS ON BACK OF FOIL PACK FOR 6 DAYS 09/07 completed Not Available Not Available Not Available amoxicill in 875 mg-potass ium clavulana te 125 mg tablet take 1 tablet by mouth twice a day for 7 days 10/11 completed Not Available Not Available Not Available Probiotic take 1 daily active Not Available Not Available No t Available Vitals None Recorded Social History Question Answer Notes LastModified by Organizat ion Details LastModified Time Tobacco Smoking Status Never Smoker DANIAL DIAL CMA null, [facility] 10/11/2023 07:37:37 What Was The Date Of Your Most Recent Tobacco Screening? 10/11/2023 Information not available 10/11/2023 Has Tobacco Cessation Counseling Been Provided? No Information not available 10/11/2023 Do You Or Have You Ever Used Any Other Forms Of Tobacco Or Nicotine? No Information not available 10/11/2023 Sex: Male Functional Status None recorded. Mental Status None recorded. Family History Relationship Description Onset Age of this Age Resolved Age Notes Notes:*Problem: mother - ali ve and well father alive, HLD, HTN, ETOH, h/o prostate Ca (unknown age), stroke older brother well; younger sister - alive, endometriosis Children- none HTN yes HLD - Yes CAD - no DM - MGF Ca - breast - MGM colon Ca - no prostate Ca - father Other: PGF throat CA Medical History No medical history recorded. Immunizations Vaccine Type Date Status Provider Name and Address Organization Details Recorded Time Tdap 03/11/2018 completed Not Available [facility] 06:09:14 COVID-19, mRNA, LNP-S, PF, 100 mcg/0.5mL dose or 50 mcg/0.25mL dose 02/16/2021 completed Not Available [facility] 08/13/20 06:09:14 COVID-19, mRNA, LNP-S, PF, 100 mcg/0.5mL dose or 50 mcg/0.25mL dose 09/10/2021 completed Not Available [facility] 08/13/20 06:09:14 COVID-19, mRNA, LNP-S, PF, 30 mcg/0.3 mL dose 03/16/2021 completed Not Available [facility] 08/13/2023 06:09:14 influenza, unspecified formulation 07/21/2017 completed Not Available [facility] 08/13/2023 06:09:14 COVID-19, mRNA, LNP-S, PF, 30 mcg/0.3 mL dose 07/20/2023 completed DANIAL DIAL CMA null, [facility] 10/11/2023 07:43:45 Influenza, split virus, quadrivalent, PF 07/20/2023 completed DANIAL DIAL [facility] null, [place] - [facility], [facility]. 10/11/2023 07:43:34 COVID-19, mRNA, LNP-S, PF, fidel-sucrose, 30 mcg/0.3 mL 07/20/2023 completed Not Available [facility] 10/15/2023 05:31:17 Past Encounters Encounter ID Performer Location Encounter Start Date Encounter Closed Date Diagnosis/Indication Diagnosis SNOMED-CT Code [id number] NEAL HAWKINS APRN [address] [address] 04/13/2024 13:34:31 04/13/2024 14:06:07 Pre-surgery evaluation [id number] RUSSELL FONG, [address] [address] 04/19/2024 13:22:45 04/19/2024 14:15:28 Pre-surgery evaluation [id number] Health Concerns Section Related Observation LastModified by Organization Detai ls LastModified Time None Recorded Concern Status LastModified by Organization Details LastModified Time None Recorded Payers Encounter Date Sequence Insurance Name Policy Number Policy Tobin Covered Member ID Tobin Member ID Guarantor Name 04/19/2024 1 [place] [facility] [id number] Gallo Fischer [id number] Gallo Fischer
--- OUTSIDE RECORDS SUMMARY | 2024-04-19 20:48 | XMS_ITS | Encounter Summary ---
Author Organization [facility] Address [address] [place] [address] Care Team Providers Care Trainman Name Role Phone Unknown, Provider Primary Care Provider Encounter Details Date Type Department Care Team (Late st Contact Info) Description 01/15/2023 Lab Requisition [facility] Pathology & Laboratory Medicine - [facility] [address] [place], [place] [address] Outr Resulting Lab, Provider Social History Tobacco Use Types Packs/Day Years Used Date Smoking Tobacco: Never Assessed Sex and Gender Information Value Date Recorded Sex Assigned at Not on file Gender Identity Not on file Sexual Orientation Not on file documented as of this encounter Plan of Treatment Not on file documented as of this encounter Procedures Procedure Name Priority Date/Time Associated Diagnosis Comments HIV 1/2 ANTIGEN AND ANTIBODY, 4TH GENERATION Routine 01/15/2023 10:30 EDT documented in this encounter Results * HIV 1/2 ANTIGEN AND ANTIBODY, 4TH GENERATION (01/15/2023 10:30 EDT) HIV 1 and 2 Antibody/p24 Antigen, 4th Generation Negative Negative 01/18/2023 11:57 EDT [facility] Comment:If acute HIV-1 infec tion is suspected in a high risk patient, submit plasma specimen for HIV-1 RNA quantitation test. Blood VENOUS BLOOD / Unknown 01/15/2023 10:30 EDT 01/15/2023 21:17 EDT Narrative [facility] - 01/18/2023 11:57 EDT Fourth Generation assay performed on the Siemens Chelaileaur XPT. Provider Outr Resulting Lab IMMUNOLOGY A ND SEROLOGY ORDERABLES [facility] [address] [place] [address] documented in this encounter Visit Diagnoses Not on filedocumented in this encounter Care Teams Trainman Relationship Specialty Start Date End Date Unknown, Provider, PCP - General 02/01/22 documented as of this encounter
--- OUTSIDE RECORDS SUMMARY | 2024-04-19 20:48 | XMS_ITS | Encounter Summary ---
Author Organization [facility] Address [address] [place] [address] Care Team Providers Care Manager Of Corporate Name Role Phone Unknown, Provider Primary Care Provider [phone] Encounter Details Date Type Department Care Team (Late st Contact Info) Description 10/11/2023 Lab Requisition [facility] Pathology & Laboratory Medicine - [address] [address] Outr Resulting Lab, Provider Social History Tobacco [...] Procedure Name Priority Date/Time Associated Diagnosis Comments PSA TOTAL, DIAGNOSTIC Routine 10/11/2023 8:10 EST documented in this encounter Results * PSA TOTAL, DIAGNOSTIC (10/11/2023 8:10 EST) PSA 0.5 <=2.5 ng/mL 10/12/2023 10:23 EST [facility] Blood VENOUS BLOOD / Unknown 10/11/2023 8:10 EST 10/11/2023 23:16 EST Narrative [facility] - 10/12/2023 10:23 EST NOTE: Serum PSA concentration should not be interpreted as absolute evidence for the presence or absence of malignant disease. Assayed on Siemens ADVIA Centaur XPT using chemiluminescent technology.??Values obtained by using different assay methods cannot be used interchangeably. Provider Outr Resulting Lab CHEMISTRY & BLOOD GAS ORDERABLES [facility] [address] [place] [address] documented in this encounter Visit Diagnoses Not on filedocumented in this encounter Care Teams Manager Of Corporate Relationship Specialty Start Date End Date Unknown, Provider, PCP - General 02/01/22 documented as of this encounter
--- OUTSIDE RECORDS SUMMARY | 2024-04-19 20:48 | XMS_ITS | Continuity of Care Document ---
Author Organization [place] - [facility], [facility] Address [address] [place] [address] Assessment Encounter Date Assessment Date Assessment LastModified by Organization Details LastModified Time 01/25/2024 01/25/2024 Flu vaccine: current Comirnaty: current Td: current- next 2027 PCV20: n/a Shingrix: n/a RSV: n/a CRC: current AAA Screening: n/a The total time devoted to today's encounter, including both the qxsa-yn-avnw time with the patient and/or family/caregi kamini and afk-gbeh-if-f jenn time I personally spent is 38 minutes. [place] 1 week prior to next visit- PSA, CMP, lipids, A1C, mag/B12; UA/MA Follow-up in 6 Months. Call or RTO sooner if needs arise. Not available 01/25/2024 08:02:29 Plan of Treatment Reminders Order Date Submit Date Provider Last Modified By Organization Details Last Modified Time Details Appointments Nurse Visit 2023 01:30P M [place] [facility] Staff Not available Not available Not available Nurse Visit 2023 08:00A M [place] Nursing Staff Not available Not available Not available Follow Up 2023 09:00A M NEAL HAWKINS Not available Not available Not available Lab None recorded . Referral None recorded . Procedures None recorded . Surgeries None recorded . Imaging None recorded . Medication Orders None recorded . Patient TargetsNo targets recorded. Patient Instructions Encounter Date Encounter Id Patient Instructions Last Modified By Organization Details Last Modified Time 01/25/2024 [id number] starting a weigh t loss plan: care instructions Not available 01/25/2024 07:58:52 diet Not available 2023 07:58:53 exercise Not available 2023 07:58:53 Reason for Referral Pain Management Referral for Chronic low back pain MRI ordered, waiting on prior auth Referring Physician: Neal Hawkins [facility], Encounter Date: 09/07/2023 Stock Saw Operator Referral for Gang lion cyst of left foot Referring Physician: Neal Hawkins [facility], Encounter Date: 09/07/2023 Neurological Surgeon Referra l for Chronic low back pain Referring Physician: Neal Hawkins [facility], Encounter Date: 10/11/2023 Results Created Date Observation Date Name Description Value Unit Range Abnormal Flag LastModifiedBy Organization Detail LastModifiedTime 04/18/20 24 04/19/2024 elect alaina bowling am No observ ation record ed. [address], [address], 04/19/2024 16:49:35 Result Notes None recorded. Problems Name Status Onset Date Resolution Date Notes Provider Name and Address Organization Details Recorded Time Family history of malignant neoplasm of prostate Active 2013 Problem Code: Z80.42; Problem Code Type: ICD-10; SAMIR [address], [facility] [address] , [facility] 3 06:58:25 Hyperlipidemia Active 2013 Problem Code: E78.5; Problem Code Type: ICD-Nagi; SAMIR [address]CG[address], [facility] [address] , [facility] 3 06:58:25 Gastroesophageal reflux disease without esophagitis Active 2021 Problem Code: K21.9; Problem Code Type: ICD-Nagi; SAMIR [address]CG[address], [facility] [address] , [facility] 3 06:58:25 Snoring Active 2021 Problem Code: R06.83; Problem Code Type: ICD-10; SAMIR [address]CG[address], [facility] [id number] [place] [address] 3 06:58:25 Obesity Active 2021 Problem Code: E66.9; Problem Code Type: ICD-10; SAMIR MCG[address] Dr, [address] 3 06:58:25 Umbilical hernia Active 2021 Problem Code: K42.9; Problem Code Type: ICD-10; SAMIR MCG[address] Dr, [address] 3 06:58:25 Cramp in lower limb associated with sleep Active 2021 Problem Code: G47.62; Problem Code Type: ICD-10; SAMIR MCG[address] Dr, [address] 3 06:58:25 Asteatosis cutis Completed 202106/30/2023 Problem Code: L85.3; Problem Code Type: ICD-10; Not Available [facility] 3 05:46:26 Adult health examination Active 2021 Problem Code: Z00.00; Problem Code Type: ICD-10; SAMIR MCGILL Dr, [address] 3 06:58:25 Hemorrhage of rectum and anus Active 2021 Problem Code: K62.5; Problem Code Type: ICD-Nagi; SAMIR MCGILL Dr, [address] 3 06:58:25 History of polyp of colon Active 2022 Problem Code: Z86.010; Problem Code Type: ICD-10; SAMIR MCGILL Dr, [facility] [id number] [place] [address] 3 06:58:25 Phimosis Completed 202101/15/2023 Problem Code: N47.1; Problem Code Type: ICD-10; Not Available [facility] 3 05:46:27 Screening for malignant neoplasm of colon Completed 202101/15/2023 Problem Code: Z12.11; Problem Code Type: ICD-10; Not Available [facility] 3 05:46:27 Liver function tests outside reference range Active [address], [address] 3 06:58:42 Essential hypertension Active [address], [address] 4 15:44:16 Chronic low back pain Active [address], [address] 4 15:44:16 Diarrhea Active [address], [address] 4 15:44:16 Ganglion cyst of left foot Active [address], [address] 4 15:44:16 Notes:*Problem Name: Family History Prostate Ca *ICD-10 Codes: *Problem Status: inactive *Comments: *Note Date: 05/07/2014 Problem Notes None recorded. Medical Equipment None Reported. [...] Available Not Available No t Available Vitals Date Recorded Body height Body mass index (BMI) Body weight Body temperature Oxygen saturation Oxygen saturation in Arterial blood by Pulse oximetry Heart rate Systolic blood pressure Diastolic blood pressure Provider Name and Address Organization Details Last Updated DateTime 4 178.003 2 cm 31.4 kg/m2 69821.1 7 g 98.3 [degF] 98 % 98 % 71 /min 122 mm[Hg] 96 mm[Hg] DANIAL DIAL CMA [facility] 07:31:23 Date Recorded Systolic blood pressure Diastolic blood pressure Provider Name and Address Organization Details Last Updated DateTime 01/25/2024 118 mm[Hg] 88 mm[Hg] NEAL HAWKINS APRN [address], [place], [address] 01/25/2024 07:46:33 Social History Question Answer Notes LastModified by Organizat ion Details LastModified Time Tobacco Smoking Status Never Smoker DANIAL DIAL CMA null, [facility] 10/11/2023 07:37:37 What Was The Date [...] Recorded Time Tdap 03/11/2018 completed Not Available [facility] 06:09:14 COVID-19, mRNA, LNP-S, PF, 100 mcg/0.5mL dose or 50 mcg/0.25mL dose 02/16/2021 completed Not Available [facility] 08/13/20 06:09:14 COVID-19, mRNA, LNP-S, PF, 100 mcg/0.5mL dose or 50 mcg/0.25mL dose 09/10/2021 completed Not Available [facility] 08/13/20 06:09:14 COVID-19, mRNA, LNP-S, PF, 30 mcg/0.3 mL dose 03/16/2021 completed Not Available [facility] 08/13/2023 06:09:14 influenza, unspecified formulation 07/21/2017 completed Not Available [facility] 08/13/2023 06:09:14 COVID-19, mRNA, LNP-S, PF, 30 mcg/0.3 mL dose 07/20/2023 completed DANIAL DIAL [employer] null, [place] - [facility] 10/11/2023 07:43:45 Influenza, split virus, quadrivalent, PF 07/20/2023 completed DANIAL DIAL [employer] null, [place] - [facility] 10/11/2023 07:43:34 COVID-19, mRNA, LNP-S, PF, fidel-sucrose, 30 mcg/0.3 mL 07/20/2023 completed Not Available [facility] 10/15/2023 05:31:17 Past Encounters Encounter ID Performer Location Encounter Start Date Encounter Closed Date Diagnosis/Indication Diagnosis SNOMED-CT Code [id number] NEAL HAWKINS [address] [address] 01/25/2024 07:17:17 01/25/2024 08:26:01 Family history of malignant neoplasm of prostate 802706877 Hyperlipidemia 82917483 Gastroesop hageal reflux disease without esophagitis 394996191 Obesity 768241143 Hemorrhage of rectum and anus 018636745 Essential hypertension 89373001 Liver func tion tests outside reference range 461304147 Chronic low back pain 27 2788233 Health Concerns Section Related Observation LastModified by Organization Detai ls LastModified Time None Recorded Concern Status LastModified by Organization Details LastModified Time None Recorded Payers Encounter Date Sequence Insurance Name Policy Number Policy Tobin Covered Member ID Tobin Member ID Guarantor Name 01/25/2024 1 [place] [facility] [id number] Gallo Fischer [id number] Gallo Fischer Notes Date Note Type Note Provider Name and Address Organization Details Recorded Time 01/25/2024 text/html HPI Notes: Is he re for follow-up: Only concern is foot and ankle swelling. Usually resolves by AM. Has been bothersome while on vacation. Uncomfortable with swimming, it was uncomfortable. - Family hx of prostate CA. PSA checked last 01/24, normal. - HLD. Working on lifestyle. ASCVD risk 3.83%. LDL at 200. Taking atorvastatin. Since starting has had elevated LFTs. - GERD. Takes Prilosec. - Overweight. Working on lifestyle. - Rectal bleeding. Anal fissure. Hx of colon polyps. Working on keeping stools soft. Working on high fiber diet. - HTN. Last visit norvasc was increased to 10mg daily. - Elevated LFTs. since starting statin. - Chronic low back pain. last visit was started on gabapentin for pain mgmt. Completed doing HEP and chiropractor visits. Has done 2 courses of steroids without relief. Taking gabapentin QHS, s/e from medication with taking during day time, some brain fog; making wrong turns to work. Feels that it helps during the night time, is able to sleep during the night. Since taking at bedtime, no brain fog during the day; Brain fog is not present when he wakes. Saw neurosurgery at [facility], was not recommended to have surgery since his pain was intermittent and that could consider referral to pain clinic for injections if becomes daily. Was also recommended to wean from gabapentin. -- update 01.25.24. No pain with the gabapentin. he stopped the gabapentin, has an appt today. The pain is still there. Feels the pain is there to the point where he cannot put on socks, sometimes not able to get in or out of the truck; nothing changes to provoke the pain. NEAL HAWKINS, BUCKRAM SEWER [address], [place], [address], [facility]. 01/25/2024 09:34:49
--- OUTSIDE RECORDS SUMMARY | 2024-04-19 20:48 | XMS_ITS | Encounter Summary ---
Author Organization [facility] Address [facility] [place] [address] Care Team Providers Care Plastic Die Maker Apprentice Name Role Phone None Primary Care Provider Unavailabl e Reason for Visit * Reason Comments Procedure gingival punch biops ies left mandible Encounter Details Date Type Department Care Team (Late st Contact Info) Description 05/12/2012 10:00 AM EDT Procedure visit [place] [address] Rogers Mane MD [facility]AL [facility] [place] [address] Leukoplakia of oral mucosa (Primary Dx) Discharge Disposition: Home Social History Tobacco Use Types Packs/Day Years Used Date Smoking Tobacco: Never Assessed Sex and Gender Information Value Date Recorded Sex Assigned at Not on file Gender Identity Not on file Sexual Orientation Not on file documented as of this encounter Progress Notes * Rogers Mane MD - 05/12/2012 11:26 AM EDT Josiah presents with leukoplakic plaque on attached gingiva on lateral aspect of tooth #19 and smaller lesion between #17 and #18. After using 2% lidocaine with 1:100,000 x 0.5 cc, a 1.5mm punch biopsy was done on the smaller lesion between #17 and #18. (specimen A) Specimen B, a 3mm punch biopsy was don on the leukoplakic plaque on lateral aspect of tooth #19. Patient tolerated the procedure well. Good hemostasis with cotton roll to area. Specimens sent to Pathology for review. Plan: Will call patient with results. He may remove cotton roll when he gets home, [place] one [place]. He will call if he has any questions or concerns in the interim. documented in this encounter Plan of Treatment Not on file documented as of this encounter Procedures Procedure Name Priority Date/Time Associated Diagnosis Comments SURGICAL PATHOLOGY REPORT Routine 05/12/2012 2:02 PM EDT SPECIMEN TO PATHOLOGY Routine 05/12/2012 11:16 AM EDT documented in this encounter Results * SURGICAL PATHOLOGY REPORT (05/12/2012 2:02 PM EDT) [facility] Provider: ?? ROGERS MANE ?Pt. Name: ?? TERRIE FISCHER ? Acc #: ?[id number] ?Pt. ? Col Date: ?? 05/12/2012 ?/Sex: ?1975,(36 years),Male ? Rec Date: ?? 05/12/2012 ?LOC: ?5B ? SURGICAL PATHOLOGY ? ---Pathologic Diagnosis--- ? A - 1.5 mm punch, gingival bx, anterior ? Benign squamous mucosa with hyperkeratosis. ? B - 3 mm punch, gingival bx, posterior ? Benign squamous mucosa with hyperkeratosis. ? 05/13/12 ? VAM ? 05/13/12 Verified by: ? Salvador Aquino MD ? Pathologist ? (Electronic Signature) ? The attending pathologist whose signature appears on this report has ? reviewed all diagnostic slides and has edited the gross and/or ? microscopic portion of the report in rendering the final pathologic ? diagnosis. ? ---Microscopic Description--- ? Slides reviewed, microscopic description not recorded. ? ---Gross Description--- ? A - Labeled/Fixativ e: Specimen A 1.5-mm gingival biopsy, formalin. ? Qty/Size/Weight : ?Single, 0.1 cm in diameter. ? Tissue Description: ?? Agosto-pink soft tissue. ? Sections/Proces sing: ??(T1) ? B - Labeled/Fixativ e: 3-mm gingival biopsy, formalin. ? Qty/Size/Weight : ?Single punch, 0.3 cm in diameter, of agosto mucosal ? tissue. ? Sections/Proces sing: ??(T1) ??aje/PPS ? ---Clinical Information--- ? Specimen Submitted: ? A - 1.5 mm punch, gingival bx, anterior ? B - 3 mm punch, gingival bx, posterior ? Clinical History/Diagnos is: ? Leukoplakic plaque on attached gingiva on lateral aspect of tooth #19 and ? smaller lesion between #17 and #18 ODALIS PORTER 05/12/2012 2:02 PM EDT Rogers Mane MD PATHOLOGY/CYTOLOGY O JOERAQIAN ODALIS PORTER * Specimen to Pathology (surgical or derm) (05/12/2012 11:16 AM EDT) AP Specimen 05/12/2012 11:1 6 AM EDT 05/12/2012 11:16 AM EDT Narrative ODALIS PORTER - 05/12/2012 11:16 AM EDT Specimen requisition ordered. ??Separate Pathology report to follow Rogers Mane MD PATHOLOGY/CYTOLOGY O RDERABLES ODALIS PORTER documented in this encounter Visit Diagnoses Diagnosis Leukoplakia of oral mucosa- Primary Leukoplakia of oral mucosa, including tongue documented in this encounter Care Teams Plastic Die Maker Apprentice Relationship Specialty Start Date End Date None None PCP - General 08/26/10 documented as of this encounter
--- OUTSIDE RECORDS SUMMARY | 2024-04-19 20:48 | XMS_ITS | Clinical Summary ---
Author Organization [facility] Address [address] [place] [address] Care Team Providers Care Tobacco Stripping Machine Operator Name Role Phone Unknown, Provider Primary Care Provider Social History Tobacco Use Types Packs/Day Years Used Date Smoking Tobacco: Never Assessed Sex and Gender Information Value Date Recorded Sex Assigned at Not on file Gender Identity Not on file Sexual Orientation Not on file Plan of Treatment Health Maintenance Due Date Last Done Comments Hepatitis B Vaccine (1 of 3 - 19+ 3-dose series) 10/08 COVID-19 Vaccine ( season) 2023 Hepatitis C Screen Completed 01/15/2023 Procedures Procedure Name Priority Date/Time Associated Diagnosis Comments HEPATITIS C AB W REFLEX TO HCV RNA BY PCR Today 01/15/2023 10:30 EDT from Last 3 Months or Most Recently Relevant to Health Maintenance Results * HEPATITIS C AB W REFLEX TO HCV RNA BY PCR (01/15/2023 10:30 EDT) Hep C Antibody Negative Negative 01/18/2023 11:40 EDT [facility] Blood VENOUS BLOOD / Unknown 01/15/2023 10:30 EDT 01/15/2023 21:17 EDT Provider Outr Resulting Lab CHEMISTRY & BLOOD GAS ORDERABLES [facility] [address] [place] [address] from Last 3 Months or Most Recently Relevant to Health Maintenance Care Teams Tobacco Stripping Machine Operator Relationship Specialty Start Date End Date Unknown, Provider, PCP - General 02/01/22
--- OUTSIDE RECORDS SUMMARY | 2024-04-19 20:48 | XMS_ITS | Continuity of Care Document ---
Author Organization [place] - [facility] Address [address] [place] [address] Assessment Encounter Date Assessment Date Assessment LastModified by Organization Details LastModified Time 04/13/2024 04/13/2024 Patient presents for pre-op evaluation. History and physical exam indicate: completed today. Patient presents for pre-op evaluation. The patient is a suitable candidate for the planned procedure. Their chronic medical problems are optimized Cleared for surgery, no concerns. Not available 04/13/2024 13:58:51 Plan of Treatment Reminders Order Date Submit Date Provider Last Modified By Organization Details Last Modified Time Details Appointments Nurse Visit 2023 01:30P M Washington Nursing Staff Not available Not available Not available Nurse Visit 2023 08:00A M Washington Nursing Staff Not available Not available Not available Follow Up 2023 09:00A M NEAL HAWKINS Not available Not available Not available Lab None recorded . Referral None recorded . Procedures None recorded . Surgeries None recorded . Imaging None recorded . Medication Orders None recorded . Patient TargetsNo targets recorded. Patient InstructionsNo instructions recorded. Reason for Referral Pain Management Referral for Chronic low back pain MRI ordered, waiting on prior auth Referring Physician: [facility], Encounter Date: 09/07/2023 Chief Compliance Officer Referral for Gang lion cyst of left foot Referring Physician: [facility], Encounter Date: 09/07/2023 Neurological Surgeon Referra l for Chronic low back pain Referring Physician: [facility], Encounter Date: 10/11/2023 Results Created Date Observation Date Name Description Value Unit Range Abnormal Flag LastModifiedBy Organization Detail LastModifiedTime 04/18/20 24 04/19/2024 elect alaina bowling am No observ ation record ed. [email or web address] [facility] [address] [place], [address], 04/19/2024 16:49:35 Result Notes None recorded. Problems Name Status Onset Date Resolution Date Notes Provider Name and Address Organization Details Recorded Time Family history of malignant neoplasm of prostate Active 2013 Problem Code: Z80.42; Problem Code Type: ICD-10; SAMIR MCGILL Dr, [facility] [address] , [facility] 3 06:58:25 Hyperlipidemia Active 2013 Problem Code: E78.5; Problem Code Type: ICD-10; SAMIR MCGILL Dr, [facility] [address] , [facility] 3 06:58:25 Gastroesophageal reflux disease without esophagitis Active 2021 Problem Code: K21.9; Problem Code Type: ICD-10; SAMIR MCGILL Dr, [facility] [address] , [facility] 3 06:58:25 Snoring Active 2021 Problem Code: R06.83; Problem Code Type: ICD-10; SAMIR MCGILL Dr, [facility] [address] , [facility] 3 06:58:25 Obesity Active 2021 Problem Code: E66.9; Problem Code Type: ICD-Nagi; SAMIR MCGILL Dr, [facility] [address] , [facility] 3 06:58:25 Umbilical hernia Active 2021 Problem Code: K42.9; Problem Code Type: ICD-10; SAMIR MCGILL Dr, [facility] [id number] [place] [address] 3 06:58:25 Cramp in lower limb associated with sleep Active 2021 Problem Code: G47.62; Problem Code Type: ICD-10; SAMIR MCGILL Dr, [facility] [id number] [place] [address] 3 06:58:25 Asteatosis cutis Completed 202106/30/2023 Problem Code: L85.3; Problem Code Type: ICD-10; Not Available [facility] 3 05:46:26 Adult health examination Active 2021 Problem Code: Z00.00; Problem Code Type: ICD-10; SAMIR MCGILL Dr, [facility] [address] 3 06:58:25 Hemorrhage of rectum and anus Active 2021 Problem Code: K62.5; Problem Code Type: ICD-10; SAMIR MCGILL Dr, [address] 3 06:58:25 History of polyp of colon Active 2022 Problem Code: Z86.010; Problem Code Type: ICD-10; SAMIR MCGILL Dr, [address] 3 06:58:25 Phimosis Completed 202101/15/2023 Problem Code: N47.1; Problem Code Type: ICD-10; Not Available [facility] 3 05:46:27 Screening for malignant neoplasm of colon Completed 202101/15/2023 Problem Code: Z12.11; Problem Code Type: ICD-10; Not Available [facility] 3 05:46:27 Liver function tests outside reference range Active 2022 [address], [place], [address] , [facility] 3 06:58:42 Essential hypertension Active 2022 NEAL HAWKINS APRN [address], [facility] [address] , [facility] 4 15:44:16 Chronic low back pain Active [address], [facility] [address] , [facility] 4 15:44:16 Diarrhea Active [address], [facility] [address] , [facility] 4 15:44:16 Ganglion cyst of left foot Active [address], [facility] [address] , [facility] 4 15:44:16 Notes:*Problem Name: Family History Prostate [...] Last Updated DateTime 4 178.003 2 cm 29 kg/m2 60597.4 6 g 97.7 [degF] 97 % 97 % 85 /min 142 mm[Hg] 94 mm[Hg] DANIAL DIAL CMA [facility] 13:42:40 Date Recorded Systolic blood pressure Diastolic blood pressure Provider Name and Address Organization Details Last Updated DateTime 04/13/2024 118 mm[Hg] 88 mm[Hg] NEAL HAWKINS APRN [address], [place], [address], [facility] 04/13/2024 13:57:40 Social History Question Answer Notes LastModified by Organizat ion Details LastModified Time Tobacco Smoking Status Never Smoker DANIAL DIAL CMA null, [facility] 10/11/2023 07:37:37 What Was The Date Of [...] Recorded Time Tdap 03/11/2018 completed Not Available [facility] 06:09:14 COVID-19, mRNA, LNP-S, PF, 100 mcg/0.5mL dose or 50 mcg/0.25mL dose 02/16/2021 completed Not Available [facility] 08/13/20 23 06:09:14 COVID-19, mRNA, LNP-S, PF, 100 mcg/0.5mL dose or 50 mcg/0.25mL dose 09/10/2021 completed Not Available [facility] 08/13/20 23 06:09:14 COVID-19, mRNA, LNP-S, PF, 30 mcg/0.3 mL dose 03/16/2021 completed Not Available [facility] 08/13/2023 06:09:14 influenza, unspecified formulation 07/21/2017 completed Not Available [facility] 08/13/2023 06:09:14 COVID-19, mRNA, LNP-S, PF, 30 mcg/0.3 mL dose 07/20/2023 completed DANIAL DIAL CMA null, [facility] 10/11/2023 07:43:45 Influenza, split virus, quadrivalent, PF 07/20/2023 completed DANIAL DIAL CMA [facility], [place] - [facility]. 10/11/2023 07:43:34 COVID-19, mRNA, LNP-S, PF, fidel-sucrose, 30 mcg/0.3 mL 07/20/2023 completed Not Available [facility] 10/15/2023 05:31:17 Past Encounters Encounter ID Performer Location Encounter Start Date Encounter Closed Date Diagnosis/Indication Diagnosis SNOMED-CT Code [id number] NEAL HAWKINS APRN [facility] [address] [place] [address] 04/13/2024 13:34:31 04/13/2024 14:06:07 Pre-surgery evaluation [id number] Health Concerns Section Related Observation LastModified by Organization Detai ls LastModified Time None Recorded Concern Status LastModified by Organization Details LastModified Time None Recorded Payers Encounter Date Sequence Insurance Name Policy Number Policy Tobin Covered Member ID Tobin Member ID Guarantor Name 04/13/2024 1 [place] [facility] [id number] Gallo Fischer [id number] Gallo Fischer Notes Date Note Type Note Provider Name and Address Organization Details Recorded Time 04/13/2024 text/html HPI Notes: Pre-O p [facility] Reported by patient. Severity: moderate Risk Factors no cognitive impairment; no functional impairment; no malnutrition; no frailty; able to climb a flight of stairs (exercise capacity>4 METS); no obstructive sleep apnea; non-smoker; no alcohol misuse; no illicit drug use; no chronic cardiopulmonary condition; not obese Anesthesia hx: no hx of anesthesia complications; no allergy to anesthetic agents; no family history of anesthesia complications; no history with anesthesia Functional Ability: able to walk up stairs; able to perform heavy work around the house; no difficulty walking up hills; able to walk 4 mph Post-Op Support: no need for assistance; adequate assistance at home; arranged Patient presents for pre-op evaluation. Procedure: L4-5 microdiscectomy New patient symptoms: Has paresthesia right leg, posterior; it is intermittent. Is having low back pain, feels more of a back fatigue. It is an ongoing fatigue. Rare advil. Pain / discomfort started May 24, after working on excavator. Pain / discomfort has not lessened. Surgery to be performed by [facility] on 04/25/2024. NEAL HAWKINS, SAMIR [address], [place], [address], [facility]. 04/13/2024 14:06:06
--- OUTSIDE RECORDS SUMMARY | 2024-04-19 20:48 | XMS_ITS | Encounter Summary ---
Author Organization [facility] Address [facility] [place] [address] Care Team Providers Care Photographic Equipment Assembler Name Role Phone None Primary Care Provider Unavailabl e Reason for Visit * Reason Onset Date Comments Results 05/20/2012 pathology result s of bx done on 05/12/12 Encounter Details Date Type Department Care Team (Late st Contact Info) Description 05/20/2012 Telephone [place] [address] Rogers Mane MD [facility] [address] ORAL & [place] [address] Results (pathology results of bx done on 05/12/12) Social History Tobacco Use Types Packs/Day Years Used Date Smoking Tobacco: Never Assessed Sex and Gender Information Value Date Recorded Sex Assigned at Not on file Gender Identity Not on file Sexual Orientation Not on file documented as of this encounter Miscellaneous Notes * Telephone Encounter - Madelaine Juan LPN - 05/20/2012 9:[address] Mane reviewed the pathology for the punch biopsies done on 05/12/12. ---Pathologic Diagnosis--- A - 1.5 mm punch, gingival bx, anterior Benign squamous mucosa with hyperkeratosis. B - 3 mm punch, gingival bx, posterior Benign squamous mucosa with hyperkeratosis. 05/13/12 VAM 05/13/12 Verified by: Miles PRIETO, Salvador Love Pathologist This information was given to documented in this encounter Plan of Treatment Not on file documented as of this encounter Visit Diagnoses Not on filedocumented in this encounter Care Teams Photographic Equipment Assembler Relationship Specialty Start Date End Date None None PCP - General 08/26/10 documented as of this encounter
--- OUTSIDE RECORDS SUMMARY | 2024-04-19 20:48 | XMS_ITS | Encounter Summary ---
Author Organization [facility] Address [facility] [place] [address] Care Team Providers Care Mutual Fund Manager Name Role Phone None Primary Care Provider Unavailabl e Reason for Visit * Reason Comments Soft Tissue Oral Lesion lower right and left mandibular vestibule lesions, previously biopsied in 2006 Encounter Details Date Type Department Care Team (Late st Contact Info) Description 05/12/2012 9:30 AM EDT Office Visit [place] [address] Rogers Mane MD [facility] [address] ORAL & [place] [address] Leukoplakia of oral mucosa (Primary Dx) Discharge Disposition: Home Social History Tobacco Use Types Packs/Day Years Used Date Smoking Tobacco: Never Assessed Sex and Gender Information Value Date Recorded Sex Assigned at Not on file Gender Identity Not on file Sexual Orientation Not on file documented as of this encounter Last Filed Vital Signs Vital Sign Reading Time Taken Comments Blood Pressure 131/77 05/12/2012 9:58 AM EDT Pulse 79 05/12/2012 9:58 AM EDT Temperature - - Respiratory Rate - - Oxygen Saturation - - Inhaled Oxygen Concentration - - Weight 73 kg (161 lb) 05/12/2012 9:58 AM EDT Height - - Body Mass Index - - documented in this encounter Progress Notes * Rogers Mane MD - 05/12/2012 10:06 AM EDT * Rogers Mane MD - 05/12/2012 10:04 AM EDT Oral & Maxillofacial Surgery Lesion Consultation Gallo Fischer is 36 y.o. male who was sent to us for consultation by Dr. Rodriguez regarding lowerright and left mandibular vestibule lesions located near #18-20 and #28-30 . A complete history of the function 's symptoms and physical signs were reviewed with attention to initial findings and progression, pain, bleeding, swelling, lumps, bumps, drainage, dysphagia, odynophagia, paresthesia, dysarthria and systemic effects. Pertinent notations from today's history: ?? Stopped chewing tobacco before previously biopsied oral mucosa demonstrating no evidence of dysplasia, hyperkeratosis. ?? Does not hold hard candy in his mouth. ?? Has been monitored by his dentist for the past year, every 6 months. Dentist recommended consultation. ?? No bleeding, paresthesia or discomfort Brief Review of Systems conducted with comments regarding pulmonary, neurologic, cardiac, gastrointestinal, hepatic, renal and dermatological symptoms. DISCONTD: hydroCODone-acetaminophen (VICODIN) 5-500 mg per tablet Not on File Physical Exam: Extraoral exam conducted including facial symmetry, sensory and motor function, alertness and appropriateness to questions and commands, range of jaw motion, TMJ function and skeletal architecture. Neck exam conducted with attention to normal musculature, vasculature and potential adenopathy. Intraoral exam including evaluation of tongue surface and consistency, floor of mouth, buccal and labial mucosa, hard and soft palate and oropharynx as well as dentition, dental arches and occlusion and salivary flow. Pertinent findings include: ?? Good mandibular range of motion ?? No facial asymmetry ?? Small papillary nodule on left aspect of uvula, non ulcerated ?? Excellent OH ?? Good occlusion ?? Right buccal mucosa unremarkable ?? Left buccal mucosa demonstrates 2 cm flat, leukoplakic lesion without erythema,ulceration or induration ?? Right mandibular attached gingiva, leukoplakia involving papillae between #29 and #30 and #28 and #29 ?? Similar leukoplakic plaque on attached gingiva on lateral aspect of tooth #19 and smaller lesionbetween #17 and #18. ?? Prominent bilateral mandibular wilda ?? Ventral aspect of tongue unremarkable ?? Bimanual palpation is unremarkable ?? No cervical lymphadenopathy Available imaging studies where appropriate were reviewed demonstrating : previous photos reviewed from 2006 demonstrate that left buccal mucosal lesions are unchanged and right alveolar mucosal lesions between 28 and 30 are unchanged. The lesions on the left buccal alveolar mucosa are new. Impression: Leukoplakia of oral mucosa. Recommendations and Plan: New areas of leukoplakia should be biopsied but given the unchanged appearance of the right side and the left labial mucosa, these can be followed without biopsy. Photos of lesions obtained. Biopsy performed today. Time Statement: Thirty minutes was spent with the patient greater than 20 minutes of which includeddirect discussion regarding the clinical and radiographic findings where indicated, the potential diagnoses and a review of the natural history as well as treatment alternatives, their benefits and at tendant risks. Gallo was given an opportunity to ask questions and instructed to contact us if further questions arise following the consultation. Emma Kamara LPN am acting as scribe for Dr. Mane. All work documented was performed by Dr. Mane. Rogers Kamara, performed the above scribed service and agree with the accuracy of the note. documented in this encounter Miscellaneous Notes * Miscellaneous - Ramana, Educational Technology Coordinator - 06/16/2012 2:09 PM EDT * Miscellaneous - Ramana, Educational Technology Coordinator - 06/16/2012 2:09 PM EDT * Miscellaneous - Ramana, Educational Technology Coordinator - 06/16/2012 2:09 PM EDT documented in this encounter Plan of Treatment Not on file documented as of this encounter Visit Diagnoses Diagnosis Leukoplakia of oral mucosa- Primary Leukoplakia of oral mucosa, including tongue documented in this encounter Care Teams Mutual Fund Manager Relationship Specialty Start Date End Date None None PCP - General 08/26/10 documented as of this encounter
--- OUTSIDE RECORDS SUMMARY | 2024-04-19 20:48 | XMS_ITS | Referral Summary ---
Author Organization [facility] Address [address] [place] [address] Care Team Providers Care Elastic Assembler Name Role Phone Unknown, Provider Primary Care Provider Social History Tobacco Use Types Packs/Day Years Used Date Smoking Tobacco: Never Assessed Sex and Gender Information Value Date Recorded Sex Assigned at Not on file Gender Identity Not on file Sexual Orientation Not on file Plan of Treatment Not on file Procedures Procedure Name Priority Date/Time Associated Diagnosis Comments HEPATITIS C AB W REFLEX TO HCV RNA BY PCR Today 01/15/2023 10:30 EDT from Last 3 Months or Most Recently Relevant to Health Maintenance Results * HEPATITIS C AB W REFLEX TO HCV RNA BY PCR (01/15/2023 10:30 EDT) Hep C Antibody Negative Negative 01/18/2023 11:40 EDT [facility] Blood VENOUS BLOOD / Unknown 01/15/2023 10:30 EDT 01/15/2023 21:17 EDT Provider Outr Resulting Lab CHEMISTRY & BLOOD GAS ORDERABLES [facility] [address] [place] [address] from Last 3 Months or Most Recently Relevant to Health Maintenance Care Teams Elastic Assembler Relationship Specialty Start Date End Date Unknown, Provider, PCP - General 02/01/22
--- OUTSIDE RECORDS SUMMARY | 2024-04-19 20:48 | XMS_ITS | Data Portability ---
Author Organization [place] - [facility] Address [address] [facility] [place] [address] Assessment Encounter Date Assessment Date Assessment LastModified by Organization Details LastModified Time 09/07/2023 09/07/2023 The total time devoted to today's encounter, including both the yman-pc-dfyz time with the patient and/or family/caregi kamini and qvx-wuvv-qh-f jenn time I personally spent is 46 minutes. Not available 09/07/2023 15:11:00 10/11/2023 10/11/2023 Flu vaccine: current. Completed last visit. Comirnaty: current. Completed last visit. Td: current PCV20: n/a Shingrix: n/a RSV: n/a CRC: current AAA Screening: n/a The total time devoted to today's encounter, including both the nfku-ye-qhxo time with the patient and/or family/caregi kamini and ett-pbml-gs-f jenn time I personally spent is 38 minutes. Not available 10/11/2023 09:11:05 01/25/2024 01/25/2024 Flu vaccine: current Comirnaty: current Td: current- next 2027 PCV20: n/a Shingrix: n/a RSV: n/a CRC: current AAA Screening: n/a The total time devoted to today's encounter, including both the ympn-ha-ziwp time with the patient and/or family/caregi kamini and ttm-yqzi-uo-f jenn time I personally spent is 38 minutes. NV 1 week prior to next visit- PSA, CMP, lipids, A1C, mag/B12; UA/MA Follow-up in 6 Months. Call or RTO sooner if needs arise. Not available 01/25/2024 08:02:29 04/13/2024 04/13/2024 Patient presents for pre-op evaluation. [...] Time Details Appointments Nurse Visit 2023 01:30P [facility] Nursing Staff Not available Not available Not available Nurse Visit 2023 08:00A [facility] Not available Not available Not available Follow Up 2023 09:00A Allyson CHAVEZYN SHRUTHI Not available Not available Not available Lab magnesium , serum or plasma 2023 024 [facility] (Registration ), [address] [place] [address] [place], [address], 10/18/2023 08:37:36 vitamin B12, serum 2023 024 [email or web address] [facility] (Registration ), [address] [place] [address] [place], [address], 10/18/2023 08:37:36 PSA, serum or plasma 2023 024 [email or web address] [facility] (Registration ), [address] [place] [address] [place], [address], 10/18/2023 08:37:36 CMP, serum or plasma 2023 024 RADHA [facility] (Registration ), [address] [place] [address] [place], [address], 10/11/2023 15:53:20 CBC w/ diff - 1Y, 1P 2023 024 [email or web address] [facility] (Registration ), [address] [place] [address] [place], [address], 04/19/2024 14:20:34 CMP, serum or plasma - 1Y, 1P 2023 024 [facility] (Registration ), [address] [place] [address], [address], 04/19/2024 14:20:35 Referral pain managemen t referral - MRI ordered, waiting on prior auth 2022 023 [email or web address] [facility], [address], [place] [address], [address], 12/06/2023 10:36:02 podiatris t referral 2022 023 [email or web address] [facility], [address] [place], [address], 03/06/2024 13:59:27 neurologi [email or web address] surgeon referral 2023 024 [facility], [address], [address], [place], [address], 12/06/2023 10:35:53 Procedures None recorded. Surgeries None recorded. Imaging MRI, lumbar spine, w/o contrast 2022 023 [facility] (Imaging), [address], [place], [address], 09/30/2023 16:50:57 electroca rdiogram [email or web address] [place] [address], [address] [place] [address], [phone], 04/19/2024 15:50:58 Medication Orders gabapenti n 300 mg capsule 2022 023 yolanda [id number], [address] [place] [address], [phone], 01/25/2024 07:28:41 Norvasc 5 mg tablet 2022 023 adriana [facility][id number], [address] [place], [place], [phone], 03/23/2024 12:23:55 amlodipin e 10 mg tablet 2023 024 RADHA [facility][id number], [address] [place], [place], [phone], 10/11/2023 07:59:37 Patient TargetsNo targets recorded. Patient Instructions Encounter Date Encounter Id Patient Instructions Last Modified By Organization Details Last Modified Time 01/25/2024 [id number] starting a weigh t loss plan: care instructions Not available 01/25/2024 07:58:52 diet Not available 2023 07:58:53 exercise Not available 2023 07:58:53 Reason for Referral Pain Management Referral for Chronic low back pain MRI ordered, waiting on prior auth Referring Physician: Alesia Peguero [facility], Encounter Date: 09/07/2023 Engineering Agent Referral for Gang lion cyst of left foot Referring Physician: Alesia Peguero [facility], Encounter Date: 09/07/2023 Neurological Surgeon Referra l for Chronic low back pain Referring Physician: Alesia Peguero [facility], Encounter Date: 10/11/2023 Results Created Date Observation Date Name Description Value Unit Range Abnormal Flag LastModifiedBy Organization Detail LastModifiedTime 10/11/1910/11/2023 COMPR EHENS AJ METAB OLIC PANEL calcium 9.5 mg/dL 8.5-10 .1 normal Not Available [address] [place], [address] 10/11/2023 15:53:20 10/11/19 24 10/11/2023 COMPR EHENS AJ METAB OLIC PANEL glucose 129 mg/dL 74-106 high Not Available [address] [place], [address] 10/11/2023 15:53:20 10/11/19 24 10/11/2023 COMPR EHENS JA METAB OLIC PANEL BUN 17 mg/dL 7-18 normal Not Available [address] [place], [address] 10/11/2023 15:53:20 10/11/19 24 10/11/2023 COMPR EHENS AJ METAB OLIC PANEL creatinine 0.9 mg/dL 0.70-1 .30 normal Not Available [address] [place], [address] 10/11/2023 15:53:20 10/11/19 24 10/11/2023 COMPR EHENS AJ METAB OLIC PANEL estimated GFR 106.01 mL/min /1.73m 2 Not Available [address] [place], [address] 10/11/2023 15:53:20 10/11/19 24 10/11/2023 COMPR EHENS AJ METAB OLIC PANEL total protein 7.4 g/dL 6.4-8. 2 normal Not Available [address] [place], [address] 10/11/2023 15:53:20 10/11/19 24 10/11/2023 COMPR EHENS AJ METAB OLIC PANEL albumin 4.2 g/dL 3.4-5. 0 normal Not Available [address] [place], [address] 10/11/2023 15:53:20 10/11/19 24 10/11/2023 COMPR EHENS AJ METAB OLIC PANEL bilirubin, total 0.8 mg/dL 0.2-1. 0 normal Not Available [address] [place], [address] 10/11/2023 15:53:20 10/11/19 24 10/11/2023 COMPR EHENS AJ METAB OLIC PANEL alk phos 68 U/L 46-116 normal Not Available [address] [place], [address] 10/11/2023 15:53:20 10/11/19 24 10/11/2023 COMPR EHENS AJ METAB OLIC PANEL sodium 139 mmol/ L 136-14 5 normal Not Available [address] [place], [address] 10/11/2023 15:53:20 10/11/19 24 10/11/2023 COMPR EHENS AJ METAB OLIC PANEL potassium 4.3 mmol/ L 3.5-5. 1 normal Not Available [address] [place], [address] 10/11/2023 15:53:20 10/11/19 24 10/11/2023 COMPR EHENS AJ METAB OLIC PANEL chloride 104 mmol/ L 98-107 normal Not Available [address] [place], [address] 10/11/2023 15:53:20 10/11/19 24 10/11/2023 COMPR EHENS AJ METAB OLIC PANEL CO2 26.8 mmol/ L 21.0-3 2.0 normal Not Available [address] [place], [address] 10/11/2023 15:53:20 10/11/19 24 10/11/2023 COMPR EHENS AJ METAB OLIC PANEL anion gap 8.2 mmol/ L 3-11 normal Not Available [address] [place], [address] 10/11/2023 15:53:20 10/11/19 24 10/11/2023 COMPR EHENS AJ METAB OLIC PANEL AST 43 U/L 15-37 high Not Available [address] [place], [address] 10/11/2023 15:53:20 10/11/19 24 10/11/2023 COMPR EHENS AJ METAB OLIC PANEL ALT 81 U/L 16-63 high Not Available [address] [place], [address] 10/11/2023 15:53:20 10/11/19 24 10/11/2023 MAGNE SIUM magnesium 2.0 mg/dL 1.8-2. 4 normal Not Available [address] [place], [address] 10/11/2023 15:53:21 10/11/19 24 10/11/2023 VITAM IN B12 vitamin B12 642 pg/mL 193-98 6 normal Not Available [facility] [address] , [place], [address] 10/11/2023 15:53:22 10/11/19 24 10/12/2023 PSA, RODRIGUEZ MENSAH PSA, screening 0.5 NG/mL <=2.5 Not Available [facility] [address] , [facility] [place], [address] 10/12/2023 11:37:19 09/21/20 23 09/02/2023 XR, chest No observ ation record ed. [email or web address] [facility] [address] [place], [address], 09/21/2023 10:50:59 09/30/20 23 09/30/2023 MRI, lumba r spine , w/o contr ast No observ ation record ed. [facility] [address] [place], [address], 10/01/2023 12:26:17 04/18/20 24 04/19/2024 elect alaina diogr am No observ ation record ed. [email or web address] [address], [address], 04/19/2024 16:49:35 Result Notes None recorded. Problems Name Status Onset Date Resolution Date Notes Provider Name and Address Organization Details Recorded Time Family history of malignant neoplasm of prostate Active 2013 Problem Code: Z80.42; Problem Code Type: ICD-10; [address], [place], [address] , [facility] 3 06:58:25 Hyperlipidemia Active 2013 Problem Code: E78.5; Problem Code Type: ICD-10; [address], [place], [address] , [facility] 3 06:58:25 Gastroesophageal reflux disease without esophagitis Active 2021 Problem Code: K21.9; Problem Code Type: ICD-10; [address], [address] 3 06:58:25 Snoring Active 2021 Problem Code: R06.83; Problem Code Type: ICD-10; SAMIR [address], [address] 3 06:58:25 Obesity Active 2021 Problem Code: E66.9; Problem Code Type: ICD-10; [address], [address] 3 06:58:25 Umbilical hernia Active 2021 Problem Code: K42.9; Problem Code Type: ICD-10; [address], [address] 3 06:58:25 Cramp in lower limb associated with sleep Active 2021 Problem Code: G47.62; Problem Code Type: ICD-10; SAMIR [address], [address] 3 06:58:25 Asteatosis cutis Completed 202106/30/2023 Problem Code: L85.3; Problem Code Type: ICD-10; Not Available [facility] 3 05:46:26 Adult health examination Active 2021 Problem Code: Z00.00; Problem Code Type: ICD-10; SAMIR [address], [address] 3 06:58:25 Hemorrhage of rectum and anus Active 2021 Problem Code: K62.5; Problem Code Type: ICD-10; [address], [place], [address] , [facility] 3 06:58:25 History of polyp of colon Active 2022 Problem Code: Z86.010; Problem Code Type: ICD-10; SAMIR [address] Dr, [facility] [address] , [facility] 3 06:58:25 Phimosis Completed 202101/15/2023 Problem Code: N47.1; Problem Code Type: ICD-10; Not Available [facility] 3 05:46:27 Screening for malignant neoplasm of colon Completed 202101/15/2023 Problem Code: Z12.11; Problem Code Type: ICD-10; Not Available [facility] 3 05:46:27 Liver function tests outside reference range Active [address], [facility] [address] , [facility] 3 06:58:42 Essential hypertension Active [address], [place], [address] , [facility] 4 15:44:16 Chronic low back pain Active [address], [facility] [address] , [facility]. 4 15:44:16 Diarrhea Active [address], [place], [address] , [facility] 4 15:44:16 Ganglion cyst of left foot Active [address], [facility] [address] , [facility] 15:44:16 Notes:*Problem Name: Family History Prostate Ca *ICD-10 Codes: *Problem Status: inactive *Comments: *Note Date: 05/07/2014 Problem Notes None recorded. Procedures Surgical History None recorded. Imaging Results Imaging Date Name Status LastModified by Organization Details LastModified Time 09/02/2023 XR, chest completed [email or web address] [facility] [address] [place] [address], [address], 09/21/2023 10:50:59 09/30/2023 MRI, lumbar spine, w/o contrast completed [email or web address] [place], [address], 10/01/2023 12:26:17 04/19/2024 electrocardiogram completed [address], [address], 04/19/2024 16:49:35 Procedure Notes None recorded. Medical [...] release take 1 tablet by mouth daily 01/08 /2024 completed Not Available Not Available Not Available [...] height Body mass index (BMI) Body weight Oxygen saturation Oxygen saturation in Arterial blood by Pulse oximetry Heart rate Systolic blood pressure Diastolic blood pressure Provider Name and Address Organization Details Last Updated DateTime 3 178.003 2 cm 30.2 kg/m2 36648.9 9 g 97 % 97 % 102 /min 152 mm[Hg] 102 mm[Hg] DANIAL DIAL CMA [facility] 3 14:14:11 Date Recorded Systolic blood pressure Diastolic blood pressure Provider Name and Address Organization Details Last Updated DateTime 09/07/2023 160 mm[Hg] 102 mm[Hg] ALESIA PEGUERO, SAMIR [address], [place], [address], [facility] 09/07/2023 14:47:46 Date Recorded Body height Body mass index (BMI) Body weight Oxygen saturation Oxygen saturation in Arterial blood by Pulse oximetry Heart rate Systolic blood pressure Diastolic blood pressure Provider Name and Address Organization Details Last Updated DateTime 4 178.003 2 cm 30.8 kg/m2 51282.4 6 g 97 % 97 % 87 /min 126 mm[Hg] 100 mm[Hg] DANIAL DIAL CMA [facility], [facility]. 07:33:57 Date Recorded Systolic blood pressure Diastolic blood pressure Provider Name and Address Organization Details Last Updated DateTime 10/11/2023 128 mm[Hg] 98 mm[Hg] ALESIA PEGUERO APRN [address], [place], [address] 10/11/2023 07:58:09 Date Recorded Body height Body mass index (BMI) Body weight Body temperature Oxygen saturation Oxygen saturation in Arterial blood by Pulse oximetry Heart rate Systolic blood pressure Diastolic blood pressure Provider Name and Address Organization Details Last Updated DateTime 4 178.003 2 cm 31.4 kg/m2 53635.1 7 g 98.3 [degF] 98 % 98 % 71 /min 122 mm[Hg] 96 mm[Hg] DANIAL DIAL [facility] 07:31:23 Date Recorded Systolic blood pressure Diastolic blood pressure Provider Name and Address Organization Details Last Updated DateTime 01/25/2024 118 mm[Hg] 88 mm[Hg] ALESIA PEGUERO APRN [address], [place], [address] 01/25/2024 07:46:33 Date Recorded Body height Body mass index (BMI) Body weight Body temperature Oxygen saturation Oxygen saturation in Arterial blood by Pulse oximetry Heart rate Systolic blood pressure Diastolic blood pressure Provider Name and Address Organization Details Last Updated DateTime 4 178.003 2 cm 29 kg/m2 65161.4 6 g 97.7 [degF] 97 % 97 % 85 /min 142 mm[Hg] 94 mm[Hg] DANIAL DIAL [facility] 13:42:40 Date Recorded Systolic blood pressure Diastolic blood pressure Provider Name and Address Organization Details Last Updated DateTime 04/13/2024 118 mm[Hg] 88 mm[Hg] ALESIA PEGUERO APRN [address], [place], [address] 04/13/2024 13:57:40 Social History Question Answer Notes LastModified by Organizat ion Details LastModified Time Tobacco Smoking Status Never Smoker RICHARD CERON, [facility] 10/11/2023 07:37:37 What Was The [...] Recorded Time Tdap 03/11/2018 completed Not Available [facility] 06:09:14 COVID-19, mRNA, LNP-S, PF, 100 mcg/0.5mL dose or 50 mcg/0.25mL dose 02/16/2021 completed Not Available [facility] 08/13/20 06:09:14 COVID-19, mRNA, LNP-S, PF, 100 mcg/0.5mL dose or 50 mcg/0.25mL dose 09/10/2021 completed Not Available [facility] 08/13/20 06:09:14 COVID-19, mRNA, LNP-S, PF, 30 mcg/0.3 mL dose 03/16/2021 completed Not Available [facility] 08/13/2023 06:09:14 influenza, unspecified formulation 07/21/2017 completed Not Available [facility] 08/13/2023 06:09:14 COVID-19, mRNA, LNP-S, PF, 30 mcg/0.3 mL dose 07/20/2023 completed RICHARD CERON, [facility] 10/11/2023 07:43:45 Influenza, split virus, quadrivalent, PF 07/20/2023 completed DANIAL DIAL CMA null, [place] [facility] 10/11/2023 07:43:34 COVID-19, mRNA, LNP-S, PF, fidel-sucrose, 30 mcg/0.3 mL 07/20/2023 completed Not Available [facility] 10/15/2023 05:31:17 Past Encounters Encounter ID Performer Location Encounter Start Date Encounter Closed Date Diagnosis/Indication Diagnosis SNOMED-CT Code [id number] ALESIA [address] [address] 09/07/2023 14:02:26 09/07/2023 16:54:30 Family history of malignant neoplasm of prostate 736337207 Hyperlipidemia 53820114 Gastroesop hageal reflux disease without esophagitis 332718484 Obesity 157788520 Hemorrhage of rectum and anus 575244868 Liver func tion tests outside reference range 526938267 Chronic low back pain 27 3291442 Essential hypertension 43841119 Diarrhea 25038834 Ganglion c yst of left foot 272501562245289 3 [id number] [address] 10/11/2023 07:28:52 10/11/2023 08:18:35 Family history of malignant neoplasm of prostate 301687848 Hyperlipidemia 39423625 Gastroesop hageal reflux disease without esophagitis 223403142 Obesity 828083353 Hemorrhage of rectum and anus 237669376 Essential hypertension 62775453 Liver func tion tests outside reference range 576353108 Chronic low back pain 27 9393926 Ganglion c yst of left foot 959670416488688 3 [id number] [address] 01/25/2024 07:17:17 01/25/2024 08:26:01 Family history of malignant neoplasm of prostate 050804357 Hyperlipidemia 62303867 Gastroesop hageal reflux disease without esophagitis 662578000 Obesity 868027083 Hemorrhage of rectum and anus 497911004 Essential hypertension 87054326 Liver func tion tests outside reference range 898233897 Chronic low back pain 27 6171957 [id number] ALESIA PEGUERO APRN [address] [address] 04/13/2024 13:34:31 04/13/2024 14:06:07 Pre-surgery evaluation [id number] RUSSELL FONG CMA [address] [address] 04/19/2024 13:22:45 04/19/2024 14:15:28 Pre-surgery evaluation 242933802 Health Concerns Section Related Observation LastModified by Organization Detai ls LastModified Time None Recorded Concern Status LastModified by Organization Details LastModified Time None Recorded Advance Directives Directive None Recorded Payers Encounter Date Sequence Insurance Name Policy Number Policy Tobin Covered Member ID Tobin Member ID Guarantor Name 09/07/2023 1 [place] [employer] [place] [id number] Gallo Fischer [id number] Gallo Dowon 10/11/2023 1 [place] [employer] [place] [id number] Gallo Fischer [id number] Gallo Fischer 01/25/2024 1 [place] [employer] [place] [id number] Gallo Fischer [id number] Gallo Fischer 04/13/2024 1 [place] [id number] Gallo Fischer [id number] Gallo Dowon 04/19/2024 1 [place] [employer] [place] [id number] Gallo Fischer [id number] Gallo Fischer Notes Date Note Type Note Provider Name and Address Organization Details Recorded Time 09/07/2023 text/html HPI Notes: Is he re for follow-up: - Family hx of prostate CA. PSA checked last 01/24, normal. - HLD. Working on lifestyle. ASCVD risk 3.83%. LDL at 200. started on atorvastatin last visit. - GERD. Takes Prilosec. Last visit dose of prilosec was increased to 40mg daily. - Overweight. Working on lifestyle. - Rectal bleeding. Anal fissure. Hx of colon polyps. Working on keeping stools soft. Working on high fiber diet. - Elevated BP without dx of HTN. Working on lifestyle. BP last visit 130/88; had elevated diastolic. BP 01/24 was 128/96 with recheck 132/94. - Elevated LFTs. since starting statin. Has a spot on his left toe that he would like looked at, it is the 3rd, toe. He slits it, squeezes it and fluid comes out and then a ball comes out. ALESIA PEGUERO, COTTRELL OPERATOR [address], [place], [address], [facility] 09/07/2023 15:48:12 10/11/2023 text/html HPI Notes: Is he re for follow-up: - Family hx of prostate CA. PSA checked last 01/24, normal. - HLD. Working on lifestyle. ASCVD risk 3.83%. LDL at 200. started on atorvastatin last visit. - GERD. Takes Prilosec. Last visit dose of prilosec was increased to 40mg daily. - Overweight. Working on lifestyle. - Rectal bleeding. Anal fissure. Hx of colon polyps. Working on keeping stools soft. Working on high fiber diet. - HTN. Last visit was started on norvasc. - Elevated LFTs. since starting statin. - Chronic low back pain. last visit was started on gabapentin for pain mgmt. Completed doing HEP and chiropractor visits. Has done 2 courses of steroids without relief. Ordered MRI of spine and has been referred to pain clinic. Pain clinic appt 01/11/24. MRI completed, he rev'd notes with chiropractor. Taking gabapentin QHS, s/e from medication with taking during day time, some brain fog; making wrong turns to work. Feels that it helps during the night time, is able to sleep during the night. Since taking at bedtime, no brain fog during the day; Brain fog is not present when he wakes. Feels symptoms are more manageable. not doing ASA or APAP for the last 1 week. - Ganglion cyst of left foot. last visit was referred to podiatry. Saw podiatry, was told it was joint fluid. Was told to leave it alone until it gets hard. ALESIA PEGUERO, SAMIR [address], [place], [address], [facility]. 10/11/2023 09:11:09 01/25/2024 text/html HPI Notes: Is he re [...] present when he wakes. Saw neurosurgery at [facility], was not recommended to have surgery since [...] truck; nothing changes to provoke the pain. ALESIA PEGUERO APRN [address], [place], [address], [facility]. 01/25/2024 09:34:49 04/13/2024 text/html HPI Notes: Pre-O p [facility] [...] discomfort started May 24, after working on [employer]. Pain / discomfort has not lessened. Surgery to be performed by [facility] on 04/25/2024. ALESIA PEGUERO, SAMIR [address], [place], [address], [facility]. 04/13/2024 14:06:06
--- OUTSIDE RECORDS SUMMARY | 2024-04-19 20:48 | XMS_ITS | Clinical Summary ---
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 Social History Tobacco Use Types Packs/Day Years Used Date Smoking Tobacco: Never Assessed Sex and Gender Information Value Date Recorded Sex Assigned at Not on file Gender Identity Not on file Sexual Orientation Not on file Last Filed Vital Signs Vital Sign Reading Time Taken Comments Blood Pressure 131/77 05/12/2012 9:58 AM EDT Pulse 79 05/12/2012 9:58 AM EDT Temperature - - Respiratory Rate - - Oxygen Saturation - - Inhaled Oxygen Concentration - - Weight 73 kg (161 lb) 05/12/2012 9:58 AM EDT Height - - Body Mass Index - - Plan of Treatment Health Maintenance Due Date Last Done Comments CT Colonography 1976 Colonoscopy 1976 Colorectal Cancer Screening 1976 FIT DNA 1976 FIT 1976 Sigmoidoscopy (10 year) with FIT yearly 1976 Sigmoidoscopy 1976 HIV screen 1994 Hepatitis C Screening 1994 Lipid Screening 1994 Hepatitis B vaccine (0-59 yrs) (1) 1995 Tdap adult 1995 Tetanus vaccine 1995 Covid-19 Vaccine ( - 2022-24 season) 2023 Influenza (Flu) vaccine (1 o f 1 - Influenza standard series) 06/04/2024 Care Teams Books Binder Relationship Specialty Start Date End Date None None PCP - General 08/26/10
--- OUTSIDE RECORDS SUMMARY | 2024-04-19 20:49 | XMS_ITS | Encounter Summary ---
Author Organization [facility] Address [address] [place] [address] Care Team Providers Care Cigar Maker Name Role Phone Unknown, Provider Primary Care Provider Encounter Details Date Type Department Care Team (Late st Contact Info) Description 03/06/2022 Lab Requisition [facility] Lab - Main [place] [address] [place] [address] Frankie Barth MD [address] [place] [phone] Encounter for screening for malignant neoplasm of colon; Melena; Heartburn Social History Tobacco Use Types Packs/Day Years Used Date Smoking Tobacco: Never Assessed Sex and Gender Information Value Date Recorded Sex Assigned at Not on file Gender Identity Not on file Sexual Orientation Not on file documented as of this encounter Plan of Treatment Not on file documented as of this encounter Procedures Procedure Name Priority Date/Time Associated Diagnosis Comments SURGICAL PATHOLOGY Today 03/05/2022 8:14 EDT Encounter for screening for malignant neoplasm of colon Melena Heartburn documented in this encounter Results * SURGICAL PATHOLOGY (03/05/2022 8:14 EDT) Note to Patient The following pathology results have been interpreted by your pathologist and may be available to you before your health provider has had the opportunity to review them. Please allow time for your provider to receive these results and explore management options, if applicable. 03/09/2022 15:07 EDT [facility] Final Diagnosis A. COLON, RANDOM BIOPSIES: - Fragments of colorectal mucosa with no significant pathologic change. - No cryptitis or other evidence of active colitis; preserved crypt architecture. - No histologic evidence of microscopic colitis. B. TRANSVERSE COLON, POLYP, BIOPSY: - Tubular adenoma. 03/09/2022 15:07 [facility] Attestation By the signature below, the attending physician certifies that they have 1) personally conducted a gross and/or microscopic examination of the described specimen(s), and/or personally interpreted the results of laboratory testing of the described specimen(s), and 2) personally rendered or confirmed the above diagnosis. 03/09/2022 15:07 [facility] at 1507 Clinical History RECTAL BLEEDING, HEMATOCHEZIA 03/09/2022 15:07 [facility] Gross Description A. Received in formalin and labeled ? Gallo Fischer and ? random colon Bx are 3 mucosal tissue fragments ranging in size from 0.4 x 0.2 x 0.1 cm up to 0.6 x 0.3 x 0.2 cm. Entirely submitted in 1 cassette. B. Received in formalin labeled ? Gallo Fischer? and ? transverse colon polyp? is a single mucosal tissue fragment measuring 0.5 x 0.4 x 0.3 cm. Entirely submitted in 1 cassette. ZANDER MONROY 03/06/2022 11:52 03/09/2022 15:07 [facility] Performing Lab [facility] 03/09/2022 15:07 [facility] Scanned Images 03/09/2022 15:07 [facility] Tissue ENTIRE TRANSVERSE COLON / Unknown 03/05/2022 8:14 EDT 03/06/2022 9:29 EDT Tissue specimen (specimen) TRANSVERSE COLON STRUCTURE / Unknown 03/05/2022 8:14 EDT 03/06/2022 9:29 EDT Frankie Barth MD PATHOLOGY ORD ERABLES [facility] [address] [place] [address] documented in this encounter Visit Diagnoses Diagnosis Encounter for screening for malignant neoplasm of colon Special screening for malignant neoplasms, colon Melena Blood in stool Heartburn documented in this encounter Care Teams Cigar Maker Relationship Specialty Start Date End Date Unknown, Provider, PCP - General 02/01/22 documented as of this encounter
--- OUTSIDE RECORDS SUMMARY | 2024-04-19 20:49 | XMS_ITS | Encounter Summary ---
Author Organization [facility] Address [address] [place] [address] Care Team Providers Care Washer Cutter Name Role Phone Unknown, Provider Primary Care Provider Encounter Details Date Type Department Care Team (Late st Contact Info) Description 01/15/2023 Lab Requisition [facility] Pathology & Laboratory Medicine - [address] [address] Outr Resulting Lab, Provider Social History Tobacco [...] Procedure Name Priority Date/Time Associated Diagnosis Comments HOLD SST Today 01/15/2023 10:30 EDT HEPATITIS C AB W REFLEX TO HCV RNA BY PCR Today 01/15/2023 10:30 EDT PSA TOTAL, DIAGNOSTIC Today 01/15/2023 10:30 EDT documented in this encounter Results * HOLD SST (01/15/2023 10:30 EDT) Hold Hold 01/15/2023 22:31 EDT [facility] Blood VENOUS BLOOD / Unknown 01/15/2023 10:30 EDT 01/15/2023 21:20 EDT Provider Outr Resulting Lab LAB INFO SER VICE AND SUPPORT & PHONE RESULT [facility] [address] [place] [address] * PSA TOTAL, DIAGNOSTIC (01/15/2023 10:30 EDT) PSA 0.7 <=2.5 ng/mL 01/15/2023 23:25 EDT [facility] Blood VENOUS BLOOD / Unknown 01/15/2023 10:30 EDT 01/15/2023 21:17 EDT Narrative [facility] - 01/15/2023 23:25 EDT NOTE: Serum PSA concentration should not be interpreted as absolute evidence for the presence or absence of malignant disease. Assayed on Siemens AtilektIA Reppifyaur XPT using chemiluminescent technology.??Values obtained by using different assay methods cannot be used interchangeably. Provider Outr Resulting Lab CHEMISTRY & BLOOD GAS ORDERABLES [facility] [address] [place] [address] * HEPATITIS C AB W REFLEX TO HCV RNA BY PCR (01/15/2023 10:30 EDT) Pathologist [facility] Hep C Antibody Negative Negative 01/18/2023 11:40 EDT [facility] Blood VENOUS BLOOD / Unknown 01/15/2023 10:30 EDT 01/15/2023 21:17 EDT Provider Outr Resulting Lab CHEMISTRY & BLOOD GAS ORDERABLES [facility] [address] [place] [address] documented in this encounter Visit Diagnoses Not on filedocumented in this encounter Care Teams Washer Cutter Relationship Specialty Start Date End Date Unknown, Provider, PCP - General 02/01/22 documented as of this encounter
--- OUTSIDE RECORDS SUMMARY | 2024-04-19 20:49 | XMS_ITS | Encounter Summary ---
Author Organization [facility] Address [address] [place] [address] Care Team Providers Care Carroter Name Role Phone Unknown, Provider Primary Care Provider Encounter Details Date Type Department Care Team (Late st Contact Info) Description 01/01/2022 Lab Requisition [facility] Pathology & Laboratory Medicine - [address] [address] Outr Resulting Lab, Provider Social History Tobacco [...] Associated Diagnosis Comments PSA TOTAL, DIAGNOSTIC Routine 01/01/2022 10:15 EDT documented in this encounter Results * PSA TOTAL, DIAGNOSTIC (01/01/2022 10:15 EDT) PSA 0.5 0.0 - 2.5 ng/mL 01/01/2022 22:09 EDT [facility] Blood VENOUS BLOOD / Unknown 01/01/2022 10:15 EDT 01/01/2022 21:17 EDT Narrative [facility] - 01/01/2022 22:09 EDT NOTE: Serum PSA concentration should not be interpreted as absolute evidence for the presence or absence of malignant disease. Assayed on Siemens ADVIA Centaur XPT using chemiluminescent technology.??Values obtained by using different assay methods cannot be used interchangeably. Provider Outr Resulting Lab CHEMISTRY & BLOOD GAS ORDERABLES [facility] [address] [place] [address] documented in this encounter Visit Diagnoses Not on filedocumented in this encounter Care Teams Carroter Relationship Specialty Start Date End Date Unknown, Provider, PCP - General 02/01/22 documented as of this encounter
--- OUTSIDE RECORDS SUMMARY | 2024-04-19 20:49 | XMS_ITS | Encounter Summary ---
Author Organization [facility] Address [address] [place] [address] Care Team Providers Care Saturator Tender Name Role Phone Unknown, Provider Primary Care Provider Encounter Details Date Type Department Care Team (Late st Contact Info) Description 03/27/2022 Lab Requisition [facility] Lab - Main [place] [address] [place] [address] Frankie Barth MD [address] [place] [phone] Melena; Heartburn Social History Tobacco Use Types [...] Date/Time Associated Diagnosis Comments SURGICAL PATHOLOGY Today 03/27/2022 10 :53 EDT Melena Heartburn documented in this encounter Results * SURGICAL PATHOLOGY (03/27/2022 10:53 EDT) Note to Patient The following pathology results have been interpreted by your pathologist and may be available to you before your health provider has had the opportunity to review them. Please allow time for your provider to receive these results and explore management options, if applicable. 03/30/2022 15:41 EDT [facility] Final Diagnosis A. GASTROESOPHAGEAL JUNCTION, BIOPSY: - Squamocolumnar mucosa with chronic inflammation and reactive changes; no goblet cells identified. See comment. - Reactive squamous mucosa with basal cell hyperplasia. 03/30/2022 15:41 EDT [facility] Diagnosis Comment Deeper levels were examined. No definitive specialized intestinal metaplasia identified. No evident dysplasia. 03/30/2022 15:41 [facility] Attestation By the signature below, the attending physician certifies that they have 1) personally conducted a gross and/or microscopic examination of the described specimen(s), and/or personally interpreted the results of laboratory testing of the described specimen(s), and 2) personally rendered or confirmed the above diagnosis. 03/30/2022 15:41 [facility] at 1541 Clinical History GERD 03/30/2022 15:41 [facility] Gross Description A. Received in formalin labeled ? Glalo Jennifer Fischer? and ? GE junction? are 4 mucosal tissue fragments ranging in size from 0.2 x 0.1 x 0.1 cm up to 0.3 x 0.2 x 0.1 cm. Entirely submitted in 1 cassette. ZANDER MONROY 03/27/2022 12:48 03/30/2022 15:41 [facility] Performing Lab [facility] 15:41 [facility] Scanned Images 03/30/2022 15:41 [facility] Tissue ENTIRE ESOPHAGO-GASTRIC MUCOSAL JUNCTION / Unknown 03/27/2022 10:53 EDT 03/27/2022 10:53 EDT Frankie Barth MD PATHOLOGY ORD ERABLES Performing Organization Address City/State/[facility] Co de Phone Number [facility] [address] [place] [phone] documented in this encounter Visit Diagnoses Diagnosis Melena Blood in stool Heartburn documented in this encounter Care Teams Saturator Tender Relationship Specialty Start Date End Date Unknown, Provider, PCP - General 02/01/22 documented as of this encounter
[2024-04-19 21:30] LABS: Abs Immature Grans 0.01 10^3/uL (0.0-0.06); Absolute Basophil Count 0.08 10^3/uL (0.0-0.2); Absolute Lymphocyte Count 2.22 10^3/uL (1.2-3.4); Absolute Monocyte Count 0.49 10^3/uL (0.1-0.8); Absolute Neutrophil Count 2.85 10^3/uL (1.2-6.7); Basophils % 1.4 %; Eosinophils % 3.4 %; HCT 47.9 % (40.0-50.0); HGB 16.5 g/dL (13.5-17.5); Immature Grans % 0.2 %; Lymphocytes % 37.9 %; MCHC 34.4 % (32.0-36.0); MCV 90 fL (80-95); Monocytes % 8.4 %; Neutrophils % 48.7 %; Platelet Count 312 10^3/uL (130-400); RBC 5.33 10^6/uL (4.36-5.78); RDW 12.3 % (11.8-14.1); RDW-SD 40.4 fL; WBC 5.85 10^3/uL (4.4-10.8)
[2024-04-19 22:26] LABS: ALT 33 U/L (16-63); AST 27 U/L (15-37); Albumin 4.6 g/dL (3.4-5.0); Alkaline Phosphatase 90 U/L (46-116); Anion Gap 11.3 mmol/L (3-11); BUN 14 mg/dL (7-18); Bilirubin, Total 1.17 mg/dL (0.2-1.0); CO2 27.7 mmol/L (21.0-32.0); CREATININE 1.1 mg/dL (0.70-1.30); Calcium 9.8 mg/dL (8.5-10.1); Chloride 104 mmol/L (98-107); Estimated GFR 83.32 (mL/min/1.73m2); Glucose 83 mg/dL (74-106); Potassium 4.7 mmol/L (3.5-5.1); Sodium 143 mmol/L (136-145); Total Protein 7.6 g/dL (6.4-8.2)
== END 2024-04-19 20:47 | disposition home or self-care (01) ==
LOC: NCHCN 20:46
PROVIDERS: Visit Provider Nurse Practitioner Family
DX: K21.9 Gastro-esophageal reflux disease without esophagitis (principal); Z01.818 Encounter for other preprocedural examination; Z01.812 Encounter for preprocedural laboratory examination
CPT/HCPCS: 80053; 85025

== ENCOUNTER 2024-07-13 17:31 | Outpatient (REF) | payer BC, SELFPAY ==
[2024-07-13 17:27] LABS: Hemoglobin A1C 5.3 % (<5.7)
[2024-07-13 17:51] LABS: ALT 30 U/L (16-63); AST 35 U/L (15-37); Albumin 4.5 g/dL (3.4-5.0); Alkaline Phosphatase 77 U/L (46-116); BUN 14 mg/dL (7-18); Bilirubin, Total 1.39 mg/dL (0.2-1.0); CREATININE 0.9 mg/dL (0.70-1.30); Calcium 9.8 mg/dL (8.5-10.1); Calculated LDL 131 mg/dL (<100); Chloride 106 mmol/L (98-107); Cholesterol 209 mg/dL (<200); Estimated GFR 106.01 (mL/min/1.73m2); Glucose 93 mg/dL (74-106); HDL Cholesterol 70 mg/dL (40-60); Magnesium 2.1 mg/dL (1.8-2.4); Potassium 4.8 mmol/L (3.5-5.1); Sodium 144 mmol/L (136-145); Total Protein 7.6 g/dL (6.4-8.2); Triglyceride 43 mg/dL (<150); Vitamin B12 483 pg/mL (193-986)
[2024-07-13 23:02] LABS: PSA, Diagnostic 0.6 ng/mL (<=2.5)
== END 2024-07-13 17:32 | disposition home or self-care (01) ==
LOC: NCHCN 17:31
PROVIDERS: Visit Provider Nurse Practitioner Family
DX: Z00.00 Encounter for general adult medical examination without abnormal findings (principal); I10 Essential (primary) hypertension; Z80.42 Family history of malignant neoplasm of prostate
CPT/HCPCS: 80053; 80061; 82607; 83036; 83735; 84153

== ENCOUNTER 2024-07-28 13:27 | Outpatient (REF) | payer BC, SELFPAY ==
--- OUTSIDE RECORDS SUMMARY | 2024-07-28 13:29 | XMS_ITS | Encounter Summary ---
Author Organization [facility] Address [address] [place] [address] Care Team Providers Care Paint Preparer Name Role Phone Unknown, Provider Primary Care Provider Encounter Details Date Type Department Care Team (Late st Contact Info) Description 03/27/2022 Lab Requisition [facility] Lab - Main [place] [address] [place] [address] Frankie Barth MD [address] [place] [phone] Melena; Heartburn Social History Tobacco Use [...] management options, if applicable. 03/30/2022 15:41 EDT [facility] Final Diagnosis A. GASTROESOPHAGEAL JUNCTION, BIOPSY: - Squamocolumnar mucosa with chronic inflammation and reactive changes; no goblet cells identified. See comment. - Reactive squamous mucosa with basal cell hyperplasia. 03/30/2022 15:41 EDT [facility] Diagnosis Comment Deeper levels were examined. No definitive specialized intestinal metaplasia identified. No evident dysplasia. 03/30/2022 15:41 [facility] Attestation By the signature below, the attending physician certifies that they have 1) personally conducted a gross and/or microscopic examination of the described specimen(s), and/or personally interpreted the results of laboratory testing of the described specimen(s), and 2) personally rendered or confirmed the above diagnosis. 03/30/2022 15:41 [facility] at 1541 Clinical History GERD 03/30/2022 15:41 [facility] Gross Description A. Received in formalin labeled ? Gallo Jennifer Fischer? and ? GE junction? are 4 mucosal tissue fragments ranging in size from 0.2 x 0.1 x 0.1 cm up to 0.3 x 0.2 x 0.1 cm. Entirely submitted in 1 cassette. ZANDER MONROY 03/27/2022 12:48 03/30/2022 15:41 [facility] Performing Lab [facility] 15:41 [facility] Scanned Images 03/30/2022 15:41 [facility] Tissue ENTIRE ESOPHAGO-GASTRIC MUCOSAL JUNCTION / Unknown 03/27/2022 10:53 EDT 03/27/2022 10:53 EDT Frankie Barth MD PATHOLOGY ORD ERABLES Performing Organization Address City/State/[facility] Co de Phone Number [facility] [address] [place] [address] documented in this encounter Visit Diagnoses Diagnosis Melena Blood in stool Heartburn documented in this encounter Care Teams Paint Preparer Relationship Specialty Start Date End Date Unknown, Provider, PCP - General 02/01/22 documented as of this encounter
--- OUTSIDE RECORDS SUMMARY | 2024-07-28 13:29 | XMS_ITS | Encounter Summary ---
Author Organization [facility] Address [address] [place] [address] Care Team Providers Care Switch Foreman Name Role Phone Unknown, Provider Primary Care Provider Encounter Details Date Type Department Care Team (Late st Contact Info) Description 01/15/2023 Lab Requisition [facility] Pathology & Laboratory Medicine - [facility] [address] [place], [place] [phone] Outr Resulting Lab, Provider Social History Tobacco [...] 4th Generation Negative Negative 01/18/2023 11:57 EDT [facility] Comment:If acute HIV-1 infec tion is suspected in a high risk patient, submit plasma specimen for HIV-1 RNA quantitation test. Blood VENOUS BLOOD / Unknown 01/15/2023 10:30 EDT 01/15/2023 21:17 EDT Narrative [facility] - 01/18/2023 11:57 EDT Fourth Generation assay performed on the Siemens Aternityaur XPT. Provider Outr Resulting Lab IMMUNOLOGY A ND SEROLOGY ORDERABLES [facility] [address] [place] [address] documented in this encounter Visit Diagnoses Not on filedocumented in this encounter Care Teams Switch Foreman Relationship Specialty Start Date End Date Unknown, Provider, PCP - General 02/01/22 documented as of this encounter
--- OUTSIDE RECORDS SUMMARY | 2024-07-28 13:29 | XMS_ITS | Encounter Summary ---
Author Organization [facility] Address [address] [place] [address] Care Team Providers Care Pharmaceutical Sales Representative Name Role Phone Unknown, Provider Primary Care Provider Encounter Details Date Type Department Care Team (Late st Contact Info) Description 01/15/2023 Lab Requisition [facility] Pathology & Laboratory Medicine - [address] [address] Outr Resulting Lab, Provider Social History Tobacco [...] 10:30 EDT) Hold Hold 01/15/2023 22:31 EDT [facility] Blood VENOUS BLOOD / Unknown 01/15/2023 10:30 EDT 01/15/2023 21:20 EDT Provider Outr Resulting Lab LAB INFO SER VICE AND SUPPORT & PHONE RESULT [facility] [address] [place] [address] * PSA TOTAL, DIAGNOSTIC (01/15/2023 10:30 EDT) PSA 0.7 <=2.5 ng/mL 01/15/2023 23:25 EDT [facility] Blood VENOUS BLOOD / Unknown 01/15/2023 10:30 EDT 01/15/2023 21:17 EDT Narrative [facility] - 01/15/2023 23:25 EDT NOTE: Serum PSA concentration should not be interpreted as absolute evidence for the presence or absence of malignant disease. Assayed on Siemens License AcquisitionsIA DigitalGlobeaur XPT using chemiluminescent technology.??Values obtained by using different assay methods cannot be used interchangeably. Provider Outr Resulting Lab CHEMISTRY & BLOOD GAS ORDERABLES [facility] [address] [place] [address] * HEPATITIS C AB W REFLEX TO HCV RNA BY PCR (01/15/2023 10:30 EDT) Pathologist [facility] Hep C Antibody Negative Negative 01/18/2023 11:40 EDT [facility] Blood VENOUS BLOOD / Unknown 01/15/2023 10:30 EDT 01/15/2023 21:17 EDT Provider Outr Resulting Lab CHEMISTRY & BLOOD GAS ORDERABLES [facility] [address] [place] [address] documented in this encounter Visit Diagnoses Not on filedocumented in this encounter Care Teams Pharmaceutical Sales Representative Relationship Specialty Start Date End Date Unknown, Provider, PCP - General 02/01/22 documented as of this encounter
--- OUTSIDE RECORDS SUMMARY | 2024-07-28 13:29 | XMS_ITS | Clinical Summary ---
Author Organization [facility] Address [address] [place] [address] Care Team Providers Care Casing Worker Name Role Phone Unknown, Provider Primary Care Provider [phone] Encounters Date Type Department Care Team Description 07/13/2024 Lab Requisition [facility] Pathology & Laboratory Medicine - [facility] [address] [place] [address] Outr Resulting Lab, Provider from Last 3 Months Social History Tobacco Use Types Packs/Day Years Used Date Smoking Tobacco: Never Assessed Sex and Gender Information Value Date Recorded Sex Assigned at Not on file Gender Identity Not on file Sexual Orientation Not on file Plan of Treatment Health Maintenance Due Date Last Done Comments Hepatitis B Vaccine (1 of 3 - 19+ 3-dose series) 10/08 COVID-19 Vaccine ( season) 2024 Hepatitis C Screen Completed 01/15/2023 Procedures Procedure Name Priority Date/Time Associated Diagnosis Comments PSA TOTAL, DIAGNOSTIC Routine 07/13/2024 8:40 EDT HEPATITIS C AB W REFLEX TO HCV RNA BY PCR Today 01/15/2023 10:30 EDT from Last 3 Months or Most Recently Relevant to Health Maintenance Results * PSA TOTAL, DIAGNOSTIC (07/13/2024 8:40 EDT) PSA 0.6 <=2.5 ng/mL 07/13/2024 22:58 EDT [facility] Blood VENOUS BLOOD / Unknown 07/13/2024 8:40 EDT 07/13/2024 21:21 EDT Narrative [facility] - 07/13/2024 22:58 EDT NOTE: Serum PSA concentration should not be interpreted as absolute evidence for the presence or absence of malignant disease. Assayed on Siemens ADVIA Centaur XPT using chemiluminescent technology.??Values obtained by using different assay methods cannot be used interchangeably. Provider Outr Resulting Lab CHEMISTRY & BLOOD GAS ORDERABLES [facility] [address] [place] [address] * HEPATITIS C AB W REFLEX TO HCV RNA BY PCR (01/15/2023 10:30 EDT) Hep C Antibody Negative Negative 01/18/2023 11:40 EDT [facility] Blood VENOUS BLOOD / Unknown 01/15/2023 10:30 EDT 01/15/2023 21:17 EDT Provider Outr Resulting Lab CHEMISTRY & BLOOD GAS ORDERABLES Performing Organization Address City/[facility] Co de Phone Number [facility] [address] [place] [address] from Last 3 Months or Most Recently Relevant to Health Maintenance Care Teams Casing Worker Relationship Specialty Start Date End Date Unknown, Provider, PCP - General 02/01/22
--- OUTSIDE RECORDS SUMMARY | 2024-07-28 13:29 | XMS_ITS | Clinical Summary ---
Author Organization [facility] [place] [address] Care Team Providers Care Senior Project Manager Name Role Phone None Primary Care [...] Hepatitis B vaccine (0-59 yrs) (1) 1995 Tetanus/Diphtheria/Pertussis Vaccines (1 - Tdap) 10/08 Covid-19 Vaccine (1 - 2022- season) 2024 Influenza (Flu) vaccine (1 o f 1 - Influenza standard series) 06/04/2024 Care Teams Senior Project Manager Relationship Specialty Start Date End Date None None PCP - General 08/26/10
--- OUTSIDE RECORDS SUMMARY | 2024-07-28 13:29 | XMS_ITS | Encounter Summary ---
Author Organization [facility] Address [facility] [place] [address] Care Team Providers Care Relocation Manager Name Role Phone None Primary Care Provider Unavailabl e Reason for Visit * Reason Comments Soft Tissue Oral Lesion lower right and left mandibular vestibule lesions, previously biopsied in 2006 Encounter Details Date Type Department Care Team (Late st Contact Info) Description 05/12/2012 9:30 AM EDT Office Visit [place] [phone] Rogers Mane MD 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
--- OUTSIDE RECORDS SUMMARY | 2024-07-28 13:29 | XMS_ITS | Referral Summary ---
Author Organization [facility] Address [address] [place] [id number] Care Team Providers Care Protein Scientist Name Role Phone Unknown, Provider Primary Care Provider Encounters Date Type Department Care Team Description 07/13/2024 Lab Requisition [facility] Pathology & Laboratory Medicine - [facility] [address] [place] [address] Outr Resulting Lab, Provider from Last 3 [...] PSA 0.6 <=2.5 ng/mL 07/13/2024 22:58 EDT [facility] Blood VENOUS BLOOD / Unknown 07/13/2024 8:40 EDT 07/13/2024 21:21 EDT Narrative [facility] - 07/13/2024 22:58 EDT NOTE: Serum PSA concentration should not be interpreted as absolute evidence for the presence or absence of malignant disease. Assayed on Siemens ADVIA Centaur XPT using chemiluminescent technology.??Values obtained by using different assay methods cannot be used interchangeably. Provider Outr Resulting Lab CHEMISTRY & BLOOD GAS ORDERABLES [facility] [address] [place], [place] [address] * HEPATITIS C AB W REFLEX TO HCV RNA BY PCR (01/15/2023 10:30 EDT) Hep C Antibody Negative Negative 01/18/2023 11:40 EDT [facility] Blood VENOUS BLOOD / Unknown 01/15/2023 10:30 EDT 01/15/2023 21:17 EDT Provider Outr Resulting Lab CHEMISTRY & BLOOD GAS ORDERABLES Performing Organization Address City/[facility] Co de Phone Number [facility] [address] [place] [address] from Last 3 Months or Most Recently Relevant to Health Maintenance Care Teams Protein Scientist Relationship Specialty Start Date End Date Unknown, Provider, PCP - General 02/01/22
--- OUTSIDE RECORDS SUMMARY | 2024-07-28 13:29 | XMS_ITS | Encounter Summary ---
Author Organization [facility] Address [address] [place] [address] Care Team Providers Care Timber Framer Helper Name Role Phone Unknown, Provider Primary Care Provider [phone] Encounter Details Date Type Department Care Team (Late st Contact Info) Description 03/06/2022 Lab Requisition [facility] - Main [place] [address] [place] [address] Frankie Barth MD [address] [place] [phone] Encounter for screening for malignant neoplasm [...] management options, if applicable. 03/09/2022 15:07 EDT [facility] Final Diagnosis A. COLON, RANDOM BIOPSIES: - Fragments of colorectal mucosa with no significant pathologic change. - No cryptitis or other evidence of active colitis; preserved crypt architecture. - No histologic evidence of microscopic colitis. B. TRANSVERSE COLON, POLYP, BIOPSY: - Tubular adenoma. 03/09/2022 15:07 [facility] Attestation By the signature below, the attending physician certifies that they have 1) personally conducted a gross and/or microscopic examination of the described specimen(s), and/or personally interpreted the results of laboratory testing of the described specimen(s), and 2) personally rendered or confirmed the above diagnosis. 03/09/2022 15:07 [facility] at 1507 Clinical History RECTAL BLEEDING, HEMATOCHEZIA 03/09/2022 15:07 [facility] Gross Description A. Received [...] cassette. ZANDER MONROY 03/06/2022 11:52 03/09/2022 15:07 [facility] Performing Lab [facility] 03/09/2022 15:07 [facility] Scanned Images 03/09/2022 15:07 [facility] Tissue ENTIRE TRANSVERSE COLON / Unknown 03/05/2022 8:14 EDT 03/06/2022 9:29 EDT Tissue specimen (specimen) TRANSVERSE COLON STRUCTURE / Unknown 03/05/2022 8:14 EDT 03/06/2022 9:29 EDT Frankie Barth MD PATHOLOGY ORD ERABLES [facility] [address] [place] [address] documented in this encounter Visit Diagnoses Diagnosis Encounter for screening for malignant neoplasm of colon Special screening for malignant neoplasms, colon Melena Blood in stool Heartburn documented in this encounter Care Teams Timber Framer Helper Relationship Specialty Start Date End Date Unknown, Provider, PCP - General 02/01/22 documented as of this encounter
--- OUTSIDE RECORDS SUMMARY | 2024-07-28 13:29 | XMS_ITS | Continuity of Care Document ---
Author Organization [place] [facility] Address [address] [place] [address] Assessment Encounter Date Assessment Date Assessment LastModified by Organization Details LastModified Time 07/28/2024 07/28/2024 Flu vaccine: provide today Comirnaty: provide todayHad covid in May 2024. Td: current- next 2027 PCV20: n/a Shingrix: n/a RSV: n/a CRC: current- due 2026 AAA Screening: n/a Follow-up in 6 Months. Call or RTO sooner if needs arise. [email or web address] Not available 07/28/2024 10:54:45 Plan of Treatment Reminders Order Date Submit Date Provider Last Modified By Organization Details Last Modified Time Details Appointments Follow Up 30 2023 09:00A Allyson HAWKINS Not available Not available Not available Office Visit 30 2024 09:00A Allyson HAWKINS Not available Not available Not available Lab urinalys is, dipstick , reflex micro 2023 024 [email or web address] [facility] (Registration ), [address] [place] [address] [place], [address], 07/28/2024 10:07:25 microalb umin/cre atinine, ratio, urine 2023 024 [email or web address] [facility] (Registration ), [address] [place] [address] [place], [address], 07/28/2024 10:07:25 Referral None recorded . Procedures None recorded . Surgeries None recorded . Imaging None recorded . Medication Orders None recorded . Patient TargetsNo targets recorded. Patient Instructions Encounter Date Encounter Id Patient Instructions Last Modified By Organization Details Last Modified Time 07/28/2024 [id number] Dear Gallo, Thank you for visiting us on July 28, 2024. We appreciate your dedication to improving your health and are pleased to see the progress you've made. Here are the dee instructions and recommendations from today's consultation: - Increase intake of Vitamin C-rich foods to address easy bruising. - Continue with dietary improvements and regular physical activity. - Maintain current heartburn medication as needed to manage symptoms. - Flu shot administered today. - Decision on COVID-19 vaccine deferred; available if you choose to proceed today. - Continue with current dosage of rosuvastatin for cholesterol management. - Monitor rectal bleeding associated with fissures; no changes in treatment needed. - Keep using blood pressure medication as prescribed; no changes needed. - Avoid salty foods to manage swelling and discoloration in feet. - Provided urine sample today; results will be sent to you. - Follow-up for PSA test scheduled for July to monitor prostate health. - Liver function tests show normal results except for slightly high bilirubin; will start to check yearly. Please continue to monitor your health and do not hesitate to contact us if you have any concerns or questions. Best regards, Laure tomermelissa Not available 07/28/2024 10:55:10 Reason for Referral Pain Management Referral for Chronic low back pain MRI ordered, waiting on prior auth Referring Physician: [facility], Encounter Date: 09/07/2023 Lye Peel Operator Referral for Gang lion cyst of left foot Referring Physician: [facility], Encounter Date: 09/07/2023 Neurological Surgeon Referra l for Chronic low back pain Referring Physician: [facility], Encounter Date: 10/11/2023 Problems Name Problem SNOMED Code Status Onset Date Resolution Date Notes Provider Name and Address Organization Details Recorded Time Family history of malignan t neoplasm of prostate 301146207 Active 2013 Problem Code: Z80.42; Problem Code Type: ICD-10; ALESIA HAWKINS APRN [address], [place], [address] , [facility] 3 06:58:25 Hyperlip idemia 64709627 Active 2013 Problem Code: E78.5; Problem Code Type: ICD-10; SAMIR MCG[address] Dr, [address] 3 06:58:25 Gastroes ophageal reflux disease without esophagi tis 050940493 Active 2021 Problem Code: K21.9; Problem Code Type: ICD-10; SAMIR MCGILL Dr, [address] 3 06:58:25 Snoring 28717865 Active 2021 Problem Code: R06.83; Problem Code Type: ICD-10; SAMIR MCGILL Dr, [address] 3 06:58:25 Obesity 946422591 Active 2021 Problem Code: E66.9; Problem Code Type: ICD-10; SAMIR MCGILL Dr, [address] 3 06:58:25 Umbilica l hernia 381705735 Active 2021 Problem Code: K42.9; Problem Code Type: ICD-10; SAMIR MCGILL Dr, [facility] [address] [place] [address] 3 06:58:25 Cramp in lower limb associat ed with sleep 97776785238 4104 Active 2021 Problem Code: G47.62; Problem Code Type: ICD-10; SAMIR MCGILL Dr, [facility] [address] [place] [address] 3 06:58:25 Asteatos is cutis 25982776 Completed 202106/30/2023 Problem Code: L85.3; Problem Code Type: ICD-10; Not Available [facility] 3 05:46:26 Adult health examinat ion Active 2021 Problem Code: Z00.00; Problem Code Type: ICD-10; SAMIR MCGILL Dr, [address] 3 06:58:25 Hemorrha ge of rectum and anus 215225712 Active 2021 Problem Code: K62.5; Problem Code Type: ICD-10; SAMIR MCGILL Dr, [address] 3 06:58:25 History of polyp of colon 224041280 Active 2022 Problem Code: Z86.010; Problem Code Type: ICD-10; SAMIR MCGILL Dr, [address] 3 06:58:25 Phimosis 137916457 Completed 202101/15/2023 Problem Code: N47.1; Problem Code Type: ICD-10; Not Available [facility] 3 05:46:27 Screenin g for malignan t neoplasm of colon Completed 202101/15/2023 Problem Code: Z12.11; Problem Code Type: ICD-10; Not Available [facility] 3 05:46:27 Liver function tests outside referenc e range 997102961 Active [address], [facility] [address] [place] [address] 3 06:58:42 [facility] hyperten catherine 70179398 Active 2022 ASCVD risk is 2.58%, calculat ed 10.24. SAMIR MCGILL Dr, [place] [id number] , [facility] 4 05:30:41 Chronic low back pain 484659191 Active [address], [facility] [address] , [facility] 4 15:44:16 Diarrhea 70223307 Active [address], [facility] [address] , [facility] 4 15:44:16 Ganglion cyst of left foot 50714427134 96969 Active [address], [facility] [address] [place] [address] 4 15:44:16 Easy bruising 630396565 Active [address], [facility] [address] , [facility] 4 09:17:19 Cramp in lower leg associat ed with rest 067549347 Active [address], [facility] [address] , [facility] 4 09:26:58 Notes:*Problem Name: Family History Prostate Ca *ICD-10 Codes: *Problem Status: inactive *Comments: *Note Date: 05/07/2014 Problem Notes None recorded. Procedures Surgical History Date Name Laterality Status Provider Name and Address Organization Details Recorded Time 04/25/20 24 lumbar microdiscectomy completed DANIAL IDAL CMA [facility] 05/05/2024 14:53:06 Imaging Results None recorded. Procedure Notes None recorded. Medical Equipment None Reported. Allergies No known drug allergies Medications Name Sig Start Date Stop Date Status Note LastModified by Organization Details LastModified Time cyclobenz aprine 10 mg tablet take 1 tablet by mouth three times a day if needed for muscle spasm active Not Available Not Available No t Available acetamino phen 325 mg tablet Take 2 tablets every 4 hours by oral route as needed. active Not Available Not Available No t Available atorvasta tin 10 mg tablet take [...] completed Not Available Not Available Not Available oxycodone 5 mg tablet take 1 tablet by mouth every 4 hours if needed for moderate pain 07/28 completed Not Available Not Available Not Available Probiotic take 1 daily active Not Available Not Available No t Available Vitals Date Recorded Body height Body mass index (BMI) Body weight Body temperature Oxygen saturation Oxygen saturation in Arterial blood by Pulse oximetry Heart rate Systolic blood pressure Diastolic blood pressure Provider Name and Address Organization Details Last Updated DateTime 4 178.003 2 cm 28.4 kg/m2 76155.6 9 g 97.9 [degF] 99 % 99 % 76 /min 116 mm[Hg] 62 mm[Hg] DANIAL DIAL CMA [facility] 08:58:37 Social History Question Answer Notes LastModified by Organizat ion Details LastModified Time Tobacco Smoking Status Never Smoker DANIAL DIAL CMA null, [facility] 10/11/2023 07:37:37 What Was The Date Of Your Most Recent Tobacco Screening? 10/11/2023 Information not available 10/11/2023 Has Tobacco Cessation Counseling Been Provided? No Information not available 10/11/2023 Do You Or Have You Ever Used Any Other Forms Of Tobacco Or Nicotine? No Information not available 10/11/2023 Sex: Male Functional Status None recorded. Mental Status None recorded. Family History Nothing Reported Notes:*Problem: mother - ali ve and well [...] Name and Address Organization Details Recorded Time Influenza, split virus, trivalent, PF 07/28/2024 completed ALESIA HAWKINS APRN [address], [place], [address], [facility] 07/28/2024 10:53:57 COVID-19, mRNA, LNP-S, PF, fidel-sucrose, 30 mcg/0.3 mL 07/28/2024 completed ALESIA HAWKINS APRN [address], [place], [address], [facility] 07/28/2024 10:53:57 Tdap 03/11/2018 completed Not Available [facility] 06:09:14 COVID-19, mRNA, LNP-S, PF, 100 mcg/0.5mL dose or 50 mcg/0.25mL dose 02/16/2021 completed Not Available [facility] 08/13/20 06:09:14 COVID-19, mRNA, LNP-S, PF, 100 mcg/0.5mL dose or 50 mcg/0.25mL dose 09/10/2021 completed Not Available [facility] 08/13/20 06:09:14 COVID-19, mRNA, LNP-S, PF, 30 mcg/0.3 mL dose 03/16/2021 completed Not Available [facility] 08/13/2023 06:09:14 influenza, unspecified formulation 07/21/2017 completed Not Available [facility] 08/13/2023 06:09:14 COVID-19, mRNA, LNP-S, PF, 30 mcg/0.3 mL dose 07/20/2023 completed RICHARD CERON, [facility] 10/11/2023 07:43:45 Influenza, split virus, quadrivalent, PF 07/20/2023 completed RICHARD CERON, [facility] 10/11/2023 07:43:34 COVID-19, mRNA, LNP-S, PF, fidel-sucrose, 30 mcg/0.3 mL 07/20/2023 completed Not Available [facility] 10/15/2023 05:31:17 Past Encounters Encounter ID Performer Location Encounter Start Date Encounter Closed Date Diagnosis/Indication Diagnosis SNOMED-CT Code Diagnosis ICD10 Code [id number] RUSSELL FONG [address] [address] 07/13/2024 08:31:26 07/13/2024 08:47:34 Adult health examination 636534073 Z00.00 Essential hypertension 57067617 I10 Family his tory of malignant neoplasm of prostate 649878233 Z80.42 Hyperlipidemia 58392430 E78.5 Obesity 749420377 E66.9 [id number] ALESIA HAWKINS APRN [address] [address] 07/28/2024 08:44:06 07/28/2024 09:53:06 Family history of malignant neoplasm of prostate 978291813 Z80.42 Hyperlipidemia 49565859 E78.5 Gastroesop hageal reflux disease without esophagitis 569496764 K21.9 Obesity 488485126 E66.9 Hemorrhage of rectum and anus 551912134 K62.5 Essential hypertension 86821227 I10 Liver func tion tests outside reference range 264736544 R94.5 Chronic low back pain 27 2628643 M54.50 Easy bruising 972801369 R58 Cramp in l ower leg associated with rest 050206617 G47.62 Active or passive immunization 767112406 Z23 Health Concerns Section Related Observation LastModified by Organization Detai ls LastModified Time None Recorded Concern Status LastModified by Organization Details LastModified Time None Recorded Payers Encounter Date Sequence Insurance Name Policy Number Policy Tobin Covered Member ID Tobin Member ID Guarantor Name 07/28/2024 1 [place] [facility] [id number] Gallo Ladan Fischer [id number] Gallo Fischer Notes Date Note Type Note Provider Name and Address Organization Details Recorded Time 07/28/2024 text/html HPI Notes: Is he re for follow-up: Feels like he bruising easily. Noticed more recently. When he gave blood, he had a large amount of bruising after. Eating less, moving more. Eating fruit once a day. Eating veggies daily. recently had back surgery. - Family hx of prostate CA. PSA checked last 01/24, normal. - HLD. Working on lifestyle. ASCVD risk 3.83%. LDL at 200. Taking atorvastatin. Since starting has had elevated LFTs. - GERD. Takes Prilosec. - Overweight. Working on lifestyle. - Rectal bleeding. Anal fissure. Hx of colon polyps. Working on keeping stools soft. Working on high fiber diet. - HTN. Takes norvasc, developed some pedal edema, suspect med s/e. - Elevated LFTs. since starting statin. - [...] present when he wakes. Saw neurosurgery at [facility], was not recommended to have surgery since [...] truck; nothing changes to provoke the pain. -- update 07.28.24. Since back surgery, doing better. no pain currently where he had pain before. ALESIA HAWKINS APRN [address], [place], [address], [facility]. 07/28/2024 10:55:39
--- OUTSIDE RECORDS SUMMARY | 2024-07-28 13:29 | XMS_ITS | Encounter Summary ---
Author Organization [facility] Address [facility] [place] [address] Care Team Providers Care Combination Machine Tool Operator Name Role Phone None Primary Care Provider Unavailabl e Encounter Details Date Type Department Care Team (Late st Contact Info) Description 05/13/2007 Orders Only Maxillofacial Surgery at [facility], [place], [facility] [place] [address] Rogers Mane MD [facility] [place] [address] Social History Tobacco Use Types Packs/Day Years [...] 8:24 PM EDT) Surgical Pathology Report [id number] ? Location: The signing pathologist has (i) [...] on filedocumented in this encounter Care Teams Combination Machine Tool Operator Relationship Specialty Start Date End Date None None PCP - General 08/26/10 documented as of this encounter
--- OUTSIDE RECORDS SUMMARY | 2024-07-28 13:29 | XMS_ITS | Encounter Summary ---
Author Organization Health system Address [address] [place] [address] Care Team Providers Care Other Wood Processing Machine Operator Name Role Phone Unknown, Provider Primary Care Provider Encounter Details Date Type Department Care Team (Late st Contact Info) Description 01/01/2022 Lab Requisition [facility] Pathology & Laboratory Medicine - [address] [address] Outr Resulting Lab, Provider Social History Tobacco [...] 0.0 - 2.5 ng/mL 01/01/2022 22:09 EDT [facility] Blood VENOUS BLOOD / Unknown 01/01/2022 10:15 EDT 01/01/2022 21:17 EDT Narrative [facility] - 01/01/2022 22:09 EDT NOTE: Serum PSA concentration should not be interpreted as absolute evidence for the presence or absence of malignant disease. Assayed on Siemens ADVIA Centaur XPT using chemiluminescent technology.??Values obtained by using different assay methods cannot be used interchangeably. Provider Outr Resulting Lab CHEMISTRY & BLOOD GAS ORDERABLES [facility] [address] [place] [address] documented in this encounter Visit Diagnoses Not on filedocumented in this encounter Care Teams Other Wood Processing Machine Operator Relationship Specialty Start Date End Date Unknown, Provider, PCP - General 02/01/22 documented as of this encounter
--- OUTSIDE RECORDS SUMMARY | 2024-07-28 13:29 | XMS_ITS | Encounter Summary ---
Author Organization [facility] Address [facility] [place] [address] Care Team Providers Care Director Account Management Name Role Phone None Primary Care Provider Unavailabl e Reason for Visit * Reason Onset Date Comments Results 05/20/2012 pathology result s of bx done on 05/12/12 Encounter Details Date Type Department Care Team (Late st Contact Info) Description 05/20/2012 Telephone [place]ill[place] [address] Rogers Mane MD [facility] [place] [address] Results (pathology results of bx done on [...] on filedocumented in this encounter Care Teams Director Account Management Relationship Specialty Start Date End Date None None PCP - General 08/26/10 documented as of this encounter
--- OUTSIDE RECORDS SUMMARY | 2024-07-28 13:29 | XMS_ITS | Encounter Summary ---
Author Organization [facility] Address [facility] [place] [address] Care Team Providers Care Principal Clerk Typist Name Role Phone None Primary Care Provider Unavailabl e Reason for Visit * Reason Comments Procedure gingival punch biops ies left mandible Encounter Details Date Type Department Care Team (Late st Contact Info) Description 05/12/2012 10:00 AM EDT Procedure visit Maxillofacial Surgery at [facility], [place] [address] Rogers Mane MD [facility] ORAL [place] [address] Leukoplakia of oral mucosa (Primary Dx) Discharge [...] 2:02 PM EDT) Surgical Pathology Report ? [facility] ? Provider: ?? ROGERS MANE ?Pt. Name: ?? LESIA TERRIE Ladan ? Acc #: ?[id number] ?Pt. ? Col Date: ?? 05/12/2012 ?/Sex: [...] PM EDT Rogers Mane MD PATHOLOGY/CYTOLOGY O R[facility]AQIAN [facility] * Specimen to Pathology (surgical or derm) (05/12/2012 11:16 AM EDT) AP Specimen 05/12/2012 11:1 6 AM EDT 05/12/2012 11:16 AM EDT Narrative [facility] - 05/12/2012 11:16 AM EDT Specimen requisition ordered. 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
--- OUTSIDE RECORDS SUMMARY | 2024-07-28 13:29 | XMS_ITS | Encounter Summary ---
Author Organization [facility] Address [address] [place] [address] Care Team Providers Care Director Of Social Work Name Role Phone Unknown, Provider Primary Care Provider Encounter Details Date Type Department Care Team (Late st Contact Info) Description 10/11/2023 Lab Requisition [facility] Pathology & Laboratory Medicine - [address] [address] Outr Resulting Lab, Provider Social History Tobacco [...] PSA 0.5 <=2.5 ng/mL 10/12/2023 10:23 EST [facility] Blood VENOUS BLOOD / Unknown 10/11/2023 8:10 EST 10/11/2023 23:16 EST Narrative [facility] - 10/12/2023 10:23 EST NOTE: Serum PSA concentration should not be interpreted as absolute evidence for the presence or absence of malignant disease. Assayed on Siemens ADVIA Centaur XPT using chemiluminescent technology.??Values obtained by using different assay methods cannot be used interchangeably. Provider Outr Resulting Lab CHEMISTRY & BLOOD GAS ORDERABLES [facility] [address] [place] [address] documented in this encounter Visit Diagnoses Not on filedocumented in this encounter Care Teams Director Of Social Work Relationship Specialty Start Date End Date Unknown, Provider, PCP - General 02/01/22 documented as of this encounter
--- OUTSIDE RECORDS SUMMARY | 2024-07-28 13:29 | XMS_ITS | Encounter Summary ---
Author Organization [facility] Address [address] [place] [address] Care Team Providers Care Costumed Character Entertainer Name Role Phone Unknown, Provider Primary Care Provider Encounter Details Date Type Department Care Team (Late st Contact Info) Description 07/13/2024 Lab Requisition [facility] Pathology & Laboratory Medicine - [address] [address] Outr Resulting Lab, Provider Social History Tobacco [...] PSA TOTAL, DIAGNOSTIC Routine 07/13/2024 8:40 EDT documented in this encounter Results * PSA TOTAL, DIAGNOSTIC (07/13/2024 8:40 EDT) PSA 0.6 <=2.5 ng/mL 07/13/2024 22:58 EDT [facility] Blood VENOUS BLOOD / Unknown 07/13/2024 8:40 EDT 07/13/2024 21:21 EDT Narrative [facility] - 07/13/2024 22:58 EDT NOTE: Serum PSA concentration should not be interpreted as absolute evidence for the presence or absence of malignant disease. Assayed on Siemens ADVIA Centaur XPT using chemiluminescent technology.??Values obtained by using different assay methods cannot be used interchangeably. Provider Outr Resulting Lab CHEMISTRY & BLOOD GAS ORDERABLES [facility] [address] [place] [address] documented in this encounter Visit Diagnoses Not on filedocumented in this encounter Care Teams Costumed Character Entertainer Relationship Specialty Start Date End Date Unknown, Provider, PCP - General 02/01/22 documented as of this encounter
[2024-07-28 15:21] LABS: Bilirubin Negative (Negative); Blood Negative (Negative); Clarity Clear (Clear); Glucose Negative (Negative); Ketones Negative (Negative); Leukocyte Esterase Negative (Negative); Nitrite Negative (Negative); Urobilinogen 0.2 mg/dL (Up to 0.2)
[2024-07-28 16:08] LABS: COMMENT (LAB VIEW ONLY) 232.96 mg/dL; Microalb ug/mg Crea 9.3 ug/mg Cr
== END 2024-07-28 13:28 | disposition home or self-care (01) ==
LOC: NCHCN 13:27
PROVIDERS: PCP Nurse Practitioner Family; Visit Provider Nurse Practitioner Family
DX: I10 Essential (primary) hypertension (principal)
CPT/HCPCS: 81003; 82043; 82570